=== PATIENT | male | born 1965 | race Caucasian/White ===

== ENCOUNTER 2017-05-14 15:22 | Inpatient (IN) | payer MEDICARE, OTHER ==
[~2017-05-14] VITALS: Ht 157.5 cm; Wt 64.2 kg
[~2017-05-14 15:22] MED LIST: ASPI325T70 PO; ONDA4TAB10 SL; ONDA4TAB12 PO; OXYC-323 PO
[2017-05-14] MEDS ORDERED: VANCOMYCIN 1GM IVPB FOR OMNI 250 ML IV ONE (16:45)
[2017-05-14] MEDS ORDERED: HYDROcodone/APAP 5/325MG 1 TAB TABLET PO ONE ×2 (16:45→17:30)
[2017-05-14] MEDS ORDERED: VANCOMYCIN 1.75 GM in IV NORMAL SALINE 500ML BAG 500 ML IV ONE (16:45)
[2017-05-14] MEDS ORDERED: DIPHTH,PERTUSS(ACELL),TET TOX 0.5 ML DISP.SYRIN. VAX IM ONE (17:00)
--- NOTE | 2017-05-14 17:09 | RAD ---
History: Swelling and redness of the left upper lateral thigh, evaluate for abscess. Comparison: None. Findings: Grayscale ultrasound imaging was performed of the left lateral thigh in area of interest. There is subcutaneous edema and soft tissue thickening. Within the edematous tissue, there is a focal hypoechoic area located about 1 cm deep to the skin surface. This measures 7 x 5 x 6 mm and may represent very small abscess. Impression: 1. Marked subcutaneous soft tissue thickening of the left lateral thigh, compatible with cellulitis. 2. There is a small focal hypoechoic area measuring 7 x 5 x 6 mm, may represent minimal abscess formation. Electronically signed by: Lucien Escudero MD (05/14/2017 5:06 PM) [facility]
[2017-05-14 17:12] LABS: BASO # 0.1 x10^3/uL (0.0-0.2); BASO % 1 % (0-3); EOS % 1 % (0-3); HEMATOCRIT 44.4 % (39.0-53.0); HEMOGLOBIN 15.4 g/dL (13.0-17.5); LYMPH # 2.5 x10^3/uL (1.0-4.8); LYMPH % 19 % (24-48); MEAN CORPUSCULAR HEMOGLOBIN 33 pg (25-35); MEAN CORPUSCULAR HGB CONC 35 g/dL (31-37); MEAN CORPUSCULAR VOLUME 95 fL (79-100); MONO % 10 % (0-9); NEUT % 71 % (31-73); PLATELET COUNT 151 x10^3/uL (140-400); RED BLOOD COUNT 4.67 x10^6/uL (4.30-5.70); RED CELL DISTRIBUTION WIDTH 12.7 % (11.5-14.5); WHITE BLOOD COUNT 13.6 x10^3/uL (4.0-11.0)
--- NOTE | 2017-05-14 17:24 | PDOC1 ---
History and Physical Date of Admission Date of Admission DATE: 05/14/17 TIME: 17:19 Identification/Chief Complaint Chief Complaint left leg abscess, wound./ Problems: Source Source: Caregiver, Chart review, Patient History of Present Illness History of Present Illness 51 y,.o male, smoker 1 ppday, non DM, no PCP, no home meds, just noticed today on day of admit that he has a painful golf sized bump on his left upper thigh near groin area, that is tender to mild touch, indurated around a central area of eschar and red, Denies fever, NO drainage, no identifiable cause for the lesion, Labs WBC 13, no BMP yet, ESR pending US done but pending , Started on some IV vanc and got TT at ER. Agreeable to admit for iV Abx Past Medical History Cardiovascular: No pertinent hx Pulmonary: Asthma GI: No pertinent hx Heme/Onc: No pertinent hx Psych: No pertinent hx Rheumatologic: No pertinent hx Infectious disease: No pertinent hx ENT: No pertinent hx Renal/: No pertinent hx Endocrine: No pertinent hx Dermatology: No pertinent hx Past Surgical History Past Surgical History: No pertinent history Family History Family History: No Significant, Heart Disease Social History Smoke: 1 pack per day ALCOHOL: none Drugs: None Current Medications Current Medications Current Medications Vancomycin HCl 250 ml @ 250 mls/hr 1X ONCE IV ; Start 05/14/17 at 16:45; Stop 05/14/17 at 17:44; Status UNV Acetaminophen/ Hydrocodone Bitart (Lortab 5/325) 2 tab 1X ONCE PO Last administered on 05/14/17 17:15; Start 05/14/17 at 16:45; Stop 05/14/17 at 16 :46; Status DC Diphtheria/ Tetanus/Acell Pertussis (Boostrix) 0.5 ml ONCE ONCE VAX IM Last administered on 05/14/17 17:17; Start 05/14/17 at 17:00; Stop 05/14/17 at 17 :01; Status DC Vancomycin HCl 1.75 gm/Sodium Chloride 500 ml @ 250 mls/hr 1X ONCE IV Last administered on 05/14/17 17:12; Start 05/14/17 at 16:45; Stop 05/14/17 at 18 :44 Vancomycin HCl (Vanco Per Pharmacy) 1 each PRN DAILY PRN MC SEE COMMENTS; Start 05/14/17 at 17:15 Acetaminophen/ Hydrocodone Bitart (Lortab 5/325) 2 tab 1X ONCE PO ; Start at 17:30; Stop 05/14/17 at 17:31 Active Scripts Active Ondansetron Odt (Ondansetron) 4 Mg Tab.rapdis 1 Tab PO PRN Q6-8HRS When necessary for nausea vomiting Percocet 5-325 Mg Tablet (Oxycodone/Acetaminophen) 1 Each Tablet 1 Tab PO QID Zofran Odt (Ondansetron) 4 Mg Tab.rapdis 1 Tab SL Q8HRS Reported Aspirin Buffered 325 Mg Tab (Aspirin/Calcium Carbonate/Mag) 325 Mg Tablet 325 Mg PO DAILY08 Allergies Allergies: Coded Allergies: Penicillins (Verified Allergy, Intermediate, hives, 07/10/14) ROS Review of System neg 14 pt reveiwed, all esle per hpI,. neg fever Physical Exam General: Alert, Oriented X3, Cooperative, No acute distress HEENT: Atraumatic, PERRLA, EOMI Lungs: Clear to auscultation, Normal air movement Heart: S1S2, RRR, no thrills, no rubs, no gallops Cardiovascular: S1, S2 Abdomen: Normal bowel sounds, Soft, No tenderness, No hepatosplenomegaly, No masses Male Genitals Exam: normal genitalia, normal prostate PELVIC: Nml ext genitalia Extremities: No clubbing, No cyanosis, No edema, Normal pulses, No tenderness/ swelling Skin: Other (golf sized lesion around upper left thigh ant to lateral side with induration around a central eschar, tender to touch) Neuro: Normal gait, Normal speech, Strength at 5/5 X4 ext, Normal tone, Sensation intact, Cranial nerves 3-12 NL, Reflexes 2+ Psych/Mental Status: Mental status NL, Mood NL Vitals Vitals Vital Signs Date Time Temp Pulse Resp B/P (MAP) Pulse Ox O2 Delivery O2 Flow Rate FiO2 05/14/17 17:15 18 96 Room Air 05/14/17 15:40 98.6 70 98.6 Labs Labs Laboratory Tests Test 05/14/17 17:00 White Blood Count 13.6 x10^3/uL (4.0-11.0) Red Blood Count 4.67 x10^6/uL (4.30-5.70) Hemoglobin 15.4 g/dL (13.0-17.5) Hematocrit 44.4 % (39.0-53.0) Mean Corpuscular Volume 95 fL (79-100) Mean Corpuscular Hemoglobin 33 pg (25-35) Mean Corpuscular Hemoglobin Concent 35 g/dL (31-37) Red Cell Distribution Width 12.7 % (11.5-14.5) Platelet Count 151 x10^3/uL (140-400) Neutrophils (%) (Auto) 71 % (31-73) Lymphocytes (%) (Auto) 19 % (24-48) Monocytes (%) (Auto) 10 % (0-9) Eosinophils (%) (Auto) 1 % (0-3) Basophils (%) (Auto) 1 % (0-3) Neutrophils # (Auto) 9.6 x10^3uL (1.8-7.7) Lymphocytes # (Auto) 2.5 x10^3/uL (1.0-4.8) Monocytes # (Auto) 1.3 x10^3/uL (0.0-1.1) Eosinophils # (Auto) 0.1 x10^3/uL (0.0-0.7) Basophils # (Auto) 0.1 x10^3/uL (0.0-0.2) Laboratory Tests Test 05/14/17 17:00 White Blood Count 13.6 x10^3/uL (4.0-11.0) Red Blood Count 4.67 x10^6/uL (4.30-5.70) Hemoglobin 15.4 g/dL (13.0-17.5) Hematocrit 44.4 % (39.0-53.0) Mean Corpuscular Volume 95 fL (79-100) Mean Corpuscular Hemoglobin 33 pg (25-35) Mean Corpuscular Hemoglobin Concent 35 g/dL (31-37) Red Cell Distribution Width 12.7 % (11.5-14.5) Platelet Count 151 x10^3/uL (140-400) Neutrophils (%) (Auto) 71 % (31-73) Lymphocytes (%) (Auto) 19 % (24-48) Monocytes (%) (Auto) 10 % (0-9) Eosinophils (%) (Auto) 1 % (0-3) Basophils (%) (Auto) 1 % (0-3) Neutrophils # (Auto) 9.6 x10^3uL (1.8-7.7) Lymphocytes # (Auto) 2.5 x10^3/uL (1.0-4.8) Monocytes # (Auto) 1.3 x10^3/uL (0.0-1.1) Eosinophils # (Auto) 0.1 x10^3/uL (0.0-0.7) Basophils # (Auto) 0.1 x10^3/uL (0.0-0.2) VTE Prophylaxis Ordered VTE Prophylaxis Devices: Yes VTE Pharmacological Prophylaxi: Yes Assessment/Plan Assessment/Plan 1. Cellulitis left upper thigh/groin area, r.o abscess 2. SMOker 3, NON DM PLAN: Admit TT IV abx Await US Fuirtehr recs pending ersults NSAIDs if no abscess pain control Seen at ER JORDAN LUNA MD May 14, 2017 17:24
[2017-05-14 17:29] LABS: CALCIUM 9.7 mg/dL (8.5-10.1); GFR 78.8; POTASSIUM 4.3 mmol/L (3.5-5.1)
[2017-05-14] MEDS ORDERED: IBUPROFEN 600 MG TABLET. PO PRN (17:30)
[2017-05-14] MEDS ORDERED: diphenhydrAMINE HCL 25 MG CAPSULE PO PRN (17:30)
--- NOTE | 2017-05-14 17:35 | PHYS DOC ---
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 He states it's very red with a dark center. He states that he noticed this area this morning. He states his last tetanus immunization was approximately 5 years ago. He denies any drainage or discharge coming from the site. He does state the pain radiates down into his lower leg. Review of Systems Review of Systems Constitutional: Denies fever or chills [] Eyes: Denies change in visual acuity, redness, or eye pain [] HENT: Denies nasal congestion or sore throat [] Respiratory: Denies cough or shortness of breath [] Cardiovascular: No additional information not addressed in HPI [] GI: Denies abdominal pain, nausea, vomiting, bloody stools or diarrhea [] : Denies dysuria or hematuria [] Musculoskeletal: Denies back pain or joint pain [] Integument: Denies rash or skin lesions. Complaint of abscess/cellulitis left upper lateral thigh Neurologic: Denies headache, focal weakness or sensory changes [] Endocrine: Denies polyuria or polydipsia [] Current Medications Current Medications Allergies Allergies Allergies Coded Allergies Type Severity Reaction Last Updated Verified Penicillins Allergy Intermediate hives 07/10/14 Yes Physical Exam Physical Exam Constitutional: Well developed, well nourished, no acute distress, non-toxic appearance. [] HENT: Normocephalic, atraumatic, bilateral external ears normal, oropharynx moist, no oral exudates, nose normal. [] Eyes: PERRLA, EOMI, conjunctiva normal, no discharge. [] Neck: Normal range of motion, no tenderness, supple, no stridor. [] Cardiovascular:Heart rate regular rhythm Lungs & Thorax: No respiratory distress noted Skin: Warm, dry, no erythema, no rash. Left lateral upper thigh appears to have an area of the size of a baseball that is red warm not indurated with a black center that is approximately size of a half a dollar. No drainage or discharge noted from the site tenderness was noted. Extremities: No tenderness, no cyanosis, no clubbing, ROM intact, no edema. [] Neurologic: Alert and oriented X 3, normal motor function, normal sensory function, no focal deficits noted. [] Psychologic: Affect normal, judgement normal, mood normal. [] Current Patient Data Vital Signs Vital Signs Date Time Temp Pulse Resp B/P (MAP) Pulse Ox O2 Delivery O2 Flow Rate FiO2 05/14/17 15:40 98.6 70 18 96 Room Air 98.6 Lab Values EKG EKG [] Radiology/Procedures Radiology/Procedures [] Course & Med Decision Making Course & Med Decision Making Pertinent Labs and Imaging studies reviewed. (See chart for details) Spoke with Dr Suh in regards to admission for this patient. Patient will be placed on Vancomycin. Dr Suh is aware labs are pending as well as ultrasound. Patient is aware of admission to the facility. [] Dragon Disclaimer Dragon Disclaimer This electronic medical record was generated, in whole or in part, using a voice recognition dictation system. Departure Departure Impression: Primary Impression: Cellulitis and abscess of left leg Disposition: ADMITTED INPATIENT Admitting Physician: Jackie Suh Referrals: LARRY FORBES MD (PCP) BUDDY SCHAEFFER APRN May 14, 2017 17:35
[2017-05-14 17:36] LABS: ALBUMIN/GLOBULIN RATIO 0.9 (1.0-1.7); C-REACTIVE PROTEIN 19.9 mg/L (0-3.3); TOTAL BILIRUBIN 0.6 mg/dL (0.2-1.0); TOTAL PROTEIN 8.4 g/dL (6.4-8.2)
[2017-05-14] MEDS: VANCOMYCIN PER PHARMACY MC PRN (18:03)
[2017-05-14 18:15] VITALS: BP 126/87
[2017-05-14 19:00] VITALS: BP 117/75
[2017-05-14] MEDS: HYDROcodone/APAP 5/325MG 1 TAB TABLET PO PRN (20:06)
[2017-05-14 23:00] VITALS: BP 112/74
[2017-05-15] MEDS: HYDROcodone/APAP 5/325MG 1 TAB TABLET PO PRN ×5 (02:43→21:54)
[2017-05-15 03:17] VITALS: BP 126/84
[2017-05-15] MEDS: VANCOMYCIN 1 GM in IV NORMAL SALINE 250ML 250 ML IV SCH ×2 (05:27→17:23)
[2017-05-15 05:36] LABS: CALCIUM 9.1 mg/dL (8.5-10.1); CREATININE 0.9 mg/dL (0.7-1.3); POTASSIUM 3.7 mmol/L (3.5-5.1)
[2017-05-15 05:55] LABS: BASO # 0.1 x10^3/uL (0.0-0.2); BASO % 1 % (0-3); EOS % 2 % (0-3); HEMATOCRIT 40.7 % (39.0-53.0); HEMOGLOBIN 14.4 g/dL (13.0-17.5); LYMPH # 2.3 x10^3/uL (1.0-4.8); LYMPH % 27 % (24-48); MEAN CORPUSCULAR HEMOGLOBIN 34 pg (25-35); MEAN CORPUSCULAR HGB CONC 35 g/dL (31-37); MEAN CORPUSCULAR VOLUME 95 fL (79-100); MONO % 11 % (0-9); NEUT % 59 % (31-73); PLATELET COUNT 126 x10^3/uL (140-400); RED CELL DISTRIBUTION WIDTH 12.5 % (11.5-14.5); WHITE BLOOD COUNT 8.3 x10^3/uL (4.0-11.0)
[2017-05-15 07:00] VITALS: BP 120/81
[2017-05-15] MEDS: NICOTINE 21MG PATCH. TD PRN ×2 (08:29→21:58)
[2017-05-15] MEDS ORDERED: PNEUMOCOCCAL VAX SCREEN BY RX. MC ONE (09:00)
[2017-05-15] MEDS ORDERED: PNEUMOC CONJ VACC 23-VALENT 0.5 ML VIAL. VAX IM ONE (09:00)
--- NOTE | 2017-05-15 09:59 | PDOC ---
PROGRESS NOTES Chief Complaint Chief Complaint 1. Cellulitis left upper thigh/groin area, r.o abscess 2. SMOker 3, NON DM History of Present Illness History of Present Illness I saw the pt < 12 hrs approx at ER US official read not yet avail, but wet read is abscess is there 7 cms in greatest diam LEsion still the same in my opinion PLAN: Consult Ortho NPO for now COnt IV Abx LAbs tmr Vitals Vitals Vital Signs Date Time Temp Pulse Resp B/P (MAP) Pulse Ox O2 Delivery O2 Flow Rate FiO2 05/15/17 08:31 Room Air 05/15/17 07:00 97.7 62 18 120/81 (94) 98 97.7 Physical Exam General: Alert, Oriented X3, Cooperative, No acute distress Lungs: Clear Abdomen: Normal bowel sounds, Soft, No tenderness, No hepatosplenomegaly, No masses Extremities: No clubbing, No cyanosis, No edema, Normal pulses, No tenderness/ swelling Skin: Other (golf sized lesion around upper left thigh ant to lateral side with induration around a central eschar, tender to touch) Labs LABS Laboratory Tests Test 05/14/17 17:00 05/15/17 04:01 White Blood Count 13.6 x10^3/uL (4.0-11.0) 8.3 x10^3/uL (4.0-11.0) Red Blood Count 4.67 x10^6/uL (4.30-5.70) 4.30 x10^6/uL (4.30-5.70) Hemoglobin 15.4 g/dL (13.0-17.5) 14.4 g/dL (13.0-17.5) Hematocrit 44.4 % (39.0-53.0) 40.7 % (39.0-53.0) Mean Corpuscular Volume 95 fL (79-100) 95 fL (79-100) Mean Corpuscular Hemoglobin 33 pg (25-35) 34 pg (25-35) Mean Corpuscular Hemoglobin Concent 35 g/dL (31-37) 35 g/dL (31-37) Red Cell Distribution Width 12.7 % (11.5-14.5) 12.5 % (11.5-14.5) Platelet Count 151 x10^3/uL (140-400) 126 x10^3/uL (140-400) Neutrophils (%) (Auto) 71 % (31-73) 59 % (31-73) Lymphocytes (%) (Auto) 19 % (24-48) 27 % (24-48) Monocytes (%) (Auto) 10 % (0-9) 11 % (0-9) Eosinophils (%) (Auto) 1 % (0-3) 2 % (0-3) Basophils (%) (Auto) 1 % (0-3) 1 % (0-3) Neutrophils # (Auto) 9.6 x10^3uL (1.8-7.7) 4.9 x10^3uL (1.8-7.7) Lymphocytes # (Auto) 2.5 x10^3/uL (1.0-4.8) 2.3 x10^3/uL (1.0-4.8) Monocytes # (Auto) 1.3 x10^3/uL (0.0-1.1) 0.9 x10^3/uL (0.0-1.1) Eosinophils # (Auto) 0.1 x10^3/uL (0.0-0.7) 0.2 x10^3/uL (0.0-0.7) Basophils # (Auto) 0.1 x10^3/uL (0.0-0.2) 0.1 x10^3/uL (0.0-0.2) Erythrocyte Sedimentation Rate 20 (0-15) Sodium Level 138 mmol/L (136-145) 138 mmol/L (136-145) Potassium Level 4.3 mmol/L (3.5-5.1) 3.7 mmol/L (3.5-5.1) Chloride Level 101 mmol/L (98-107) 103 mmol/L (98-107) Carbon Dioxide Level 25 mmol/L (21-32) 27 mmol/L (21-32) Anion Gap 12 (6-14) 8 (6-14) Blood Urea Nitrogen 16 mg/dL (8-26) 16 mg/dL (8-26) Creatinine 1.0 mg/dL (0.7-1.3) 0.9 mg/dL (0.7-1.3) Estimated GFR (Cockcroft-Gault) 78.8 89.0 BUN/Creatinine Ratio 16 (6-20) Glucose Level 89 mg/dL (70-99) 85 mg/dL (70-99) Calcium Level 9.7 mg/dL (8.5-10.1) 9.1 mg/dL (8.5-10.1) Total Bilirubin 0.6 mg/dL (0.2-1.0) Aspartate Amino Transf (AST/SGOT) 35 U/L (15-37) Alanine Aminotransferase (ALT/SGPT) 42 U/L (16-63) Alkaline Phosphatase 78 U/L (46-116) C-Reactive Protein, Quantitative 19.9 mg/L (0-3.3) Total Protein 8.4 g/dL (6.4-8.2) Albumin 4.0 g/dL (3.4-5.0) Albumin/Globulin Ratio 0.9 (1.0-1.7) Review of Systems Review of Systems left hip pain, all else is neg 14 pt reviewed Assessment and Plan Assessmemt and Plan Problems Medical Problems: (1) Cellulitis and abscess of left leg Status: Acute Problems: Comment Review of Relevant I have reviewed the following items aleksandr (where applicable) has been applied. Labs Laboratory Tests Test 05/14/17 17:00 05/15/17 04:01 White Blood Count 13.6 x10^3/uL (4.0-11.0) 8.3 x10^3/uL (4.0-11.0) Red Blood Count 4.67 x10^6/uL (4.30-5.70) 4.30 x10^6/uL (4.30-5.70) Hemoglobin 15.4 g/dL (13.0-17.5) 14.4 g/dL (13.0-17.5) Hematocrit 44.4 % (39.0-53.0) 40.7 % (39.0-53.0) Mean Corpuscular Volume 95 fL (79-100) 95 fL (79-100) Mean Corpuscular Hemoglobin 33 pg (25-35) 34 pg (25-35) Mean Corpuscular Hemoglobin Concent 35 g/dL (31-37) 35 g/dL (31-37) Red Cell Distribution Width 12.7 % (11.5-14.5) 12.5 % (11.5-14.5) Platelet Count 151 x10^3/uL (140-400) 126 x10^3/uL (140-400) Neutrophils (%) (Auto) 71 % (31-73) 59 % (31-73) Lymphocytes (%) (Auto) 19 % (24-48) 27 % (24-48) Monocytes (%) (Auto) 10 % (0-9) 11 % (0-9) Eosinophils (%) (Auto) 1 % (0-3) 2 % (0-3) Basophils (%) (Auto) 1 % (0-3) 1 % (0-3) Neutrophils # (Auto) 9.6 x10^3uL (1.8-7.7) 4.9 x10^3uL (1.8-7.7) Lymphocytes # (Auto) 2.5 x10^3/uL (1.0-4.8) 2.3 x10^3/uL (1.0-4.8) Monocytes # (Auto) 1.3 x10^3/uL (0.0-1.1) 0.9 x10^3/uL (0.0-1.1) Eosinophils # (Auto) 0.1 x10^3/uL (0.0-0.7) 0.2 x10^3/uL (0.0-0.7) Basophils # (Auto) 0.1 x10^3/uL (0.0-0.2) 0.1 x10^3/uL (0.0-0.2) Erythrocyte Sedimentation Rate 20 (0-15) Sodium Level 138 mmol/L (136-145) 138 mmol/L (136-145) Potassium Level 4.3 mmol/L (3.5-5.1) 3.7 mmol/L (3.5-5.1) Chloride Level 101 mmol/L (98-107) 103 mmol/L (98-107) Carbon Dioxide Level 25 mmol/L (21-32) 27 mmol/L (21-32) Anion Gap 12 (6-14) 8 (6-14) Blood Urea Nitrogen 16 mg/dL (8-26) 16 mg/dL (8-26) Creatinine 1.0 mg/dL (0.7-1.3) 0.9 mg/dL (0.7-1.3) Estimated GFR (Cockcroft-Gault) 78.8 89.0 BUN/Creatinine Ratio 16 (6-20) Glucose Level 89 mg/dL (70-99) 85 mg/dL (70-99) Calcium Level 9.7 mg/dL (8.5-10.1) 9.1 mg/dL (8.5-10.1) Total Bilirubin 0.6 mg/dL (0.2-1.0) Aspartate Amino Transf (AST/SGOT) 35 U/L (15-37) Alanine Aminotransferase (ALT/SGPT) 42 U/L (16-63) Alkaline Phosphatase 78 U/L (46-116) C-Reactive Protein, Quantitative 19.9 mg/L (0-3.3) Total Protein 8.4 g/dL (6.4-8.2) Albumin 4.0 g/dL (3.4-5.0) Albumin/Globulin Ratio 0.9 (1.0-1.7) Laboratory Tests Test 05/14/17 17:00 05/15/17 04:01 White Blood Count 13.6 x10^3/uL (4.0-11.0) 8.3 x10^3/uL (4.0-11.0) Red Blood Count 4.67 x10^6/uL (4.30-5.70) 4.30 x10^6/uL (4.30-5.70) Hemoglobin 15.4 g/dL (13.0-17.5) 14.4 g/dL (13.0-17.5) Hematocrit 44.4 % (39.0-53.0) 40.7 % (39.0-53.0) Mean Corpuscular Volume 95 fL (79-100) 95 fL (79-100) Mean Corpuscular Hemoglobin 33 pg (25-35) 34 pg (25-35) Mean Corpuscular Hemoglobin Concent 35 g/dL (31-37) 35 g/dL (31-37) Red Cell Distribution Width 12.7 % (11.5-14.5) 12.5 % (11.5-14.5) Platelet Count 151 x10^3/uL (140-400) 126 x10^3/uL (140-400) Neutrophils (%) (Auto) 71 % (31-73) 59 % (31-73) Lymphocytes (%) (Auto) 19 % (24-48) 27 % (24-48) Monocytes (%) (Auto) 10 % (0-9) 11 % (0-9) Eosinophils (%) (Auto) 1 % (0-3) 2 % (0-3) Basophils (%) (Auto) 1 % (0-3) 1 % (0-3) Neutrophils # (Auto) 9.6 x10^3uL (1.8-7.7) 4.9 x10^3uL (1.8-7.7) Lymphocytes # (Auto) 2.5 x10^3/uL (1.0-4.8) 2.3 x10^3/uL (1.0-4.8) Monocytes # (Auto) 1.3 x10^3/uL (0.0-1.1) 0.9 x10^3/uL (0.0-1.1) Eosinophils # (Auto) 0.1 x10^3/uL (0.0-0.7) 0.2 x10^3/uL (0.0-0.7) Basophils # (Auto) 0.1 x10^3/uL (0.0-0.2) 0.1 x10^3/uL (0.0-0.2) Erythrocyte Sedimentation Rate 20 (0-15) Sodium Level 138 mmol/L (136-145) 138 mmol/L (136-145) Potassium Level 4.3 mmol/L (3.5-5.1) 3.7 mmol/L (3.5-5.1) Chloride Level 101 mmol/L (98-107) 103 mmol/L (98-107) Carbon Dioxide Level 25 mmol/L (21-32) 27 mmol/L (21-32) Anion Gap 12 (6-14) 8 (6-14) Blood Urea Nitrogen 16 mg/dL (8-26) 16 mg/dL (8-26) Creatinine 1.0 mg/dL (0.7-1.3) 0.9 mg/dL (0.7-1.3) Estimated GFR (Cockcroft-Gault) 78.8 89.0 BUN/Creatinine Ratio 16 (6-20) Glucose Level 89 mg/dL (70-99) 85 mg/dL (70-99) Calcium Level 9.7 mg/dL (8.5-10.1) 9.1 mg/dL (8.5-10.1) Total Bilirubin 0.6 mg/dL (0.2-1.0) Aspartate Amino Transf (AST/SGOT) 35 U/L (15-37) Alanine Aminotransferase (ALT/SGPT) 42 U/L (16-63) Alkaline Phosphatase 78 U/L (46-116) C-Reactive Protein, Quantitative 19.9 mg/L (0-3.3) Total Protein 8.4 g/dL (6.4-8.2) Albumin 4.0 g/dL (3.4-5.0) Albumin/Globulin Ratio 0.9 (1.0-1.7) Medications Current Medications Vancomycin HCl 250 ml @ 250 mls/hr 1X ONCE IV ; Start 05/14/17 at 16:45; Stop 05/14/17 at 17:44; Status UNV Acetaminophen/ Hydrocodone Bitart (Lortab 5/325) 2 tab 1X ONCE PO Last administered on 05/14/17 17:15; Start 05/14/17 at 16:45; Stop 05/14/17 at 16 :46; Status DC Diphtheria/ Tetanus/Acell Pertussis (Boostrix) 0.5 ml ONCE ONCE VAX IM Last administered on 05/14/17 17:17; Start 05/14/17 at 17:00; Stop 05/14/17 at 17 :01; Status DC Vancomycin HCl 1.75 gm/Sodium Chloride 500 ml @ 250 mls/hr 1X ONCE IV Last administered on 05/14/17 17:12; Start 05/14/17 at 16:45; Stop 05/14/17 at 18 :44; Status DC Vancomycin HCl (Vanco Per Pharmacy) 1 each PRN DAILY PRN MC SEE COMMENTS Last administered on 05/14/17 18:03; Start 05/14/17 at 17:15 Acetaminophen/ Hydrocodone Bitart (Lortab 5/325) 2 tab 1X ONCE PO ; Start at 17:30; Stop 05/14/17 at 17:31; Status DC Acetaminophen/ Hydrocodone Bitart (Lortab 5/325) 1 tab PRN Q4HRS PRN PO PAIN Last administered on 05/15/17 08:31; Start 05/14/17 at 17:30 Ibuprofen (Motrin) 600 mg PRN Q6HRS PRN PO INFLAMMATION; Start 05/14/17 at 17: 30 Albuterol Sulfate (Ventolin Neb Soln) 2.5 mg PRN Q4HRS PRN NEB SHORTNESS OF BREATH; Start 05/14/17 at 17:30 Nicotine (Nicoderm Cq 21mg) 1 patch PRN DAILY PRN TD SMOKING CESSATION Last administered on 05/15/17 08:29; Start 05/14/17 at 17:30 Diphenhydramine HCl (Benadryl) 25 mg PRN QHS PRN PO INSOMNIA; Start 05/14/17 at 17:30 Vancomycin HCl 1 gm/Sodium Chloride 250 ml @ 250 mls/hr Q12H IV Last administered on 05/15/17 05:27; Start 05/15/17 at 05:00 Vancomycin HCl 1 each 1X ONCE MC ; Start 05/16/17 at 04:30; Stop 05/16/17 at 04:31 Pneumococcal Polyvalent Vaccine (Do NOT chart on this placeholder) 0.5 each 1X ONCE MC ; Start 05/15/17 at 09:00; Stop 05/15/17 at 09:01; Status UNV Pneumococcal Polyvalent Vaccine (Pneumovax 23) 0.5 ml ONCE ONCE VAX IM ; Start 05/15/17 at 09:00; Stop 05/15/17 at 09:01; Status DC Active Scripts Active Ondansetron Odt (Ondansetron) 4 Mg Tab.rapdis 1 Tab PO PRN Q6-8HRS When necessary for nausea vomiting Percocet 5-325 Mg Tablet (Oxycodone/Acetaminophen) 1 Each Tablet 1 Tab PO QID Vitals/I & O Vital Sign - Last 24 Hours 05/14/17 05/14/17 05/14/17 05/14/17 15:40 16:47 17:15 17:17 Temp 98.6 98.6 Pulse 70 74 76 Resp 18 18 18 18 B/P (MAP) 142/90 (107) 148/95 (112) Pulse Ox 96 96 96 98 O2 Delivery Room Air Room Air Room Air Room Air 10/17/05/14/17 05/14/17 05/14/17 17:47 18:15 18:15 19:00 Temp 98.9 97.5 98.9 97.5 Pulse 76 83 77 Resp 48 18 18 20 B/P (MAP) 150/90 (110) 126/87 (100) 117/75 (89) Pulse Ox 97 95 99 O2 Delivery Room Air Room Air Room Air Room Air 05/14/17 05/14/17 05/14/17 05/14/17 20:00 20:06 21:06 23:00 Temp 98.2 98.2 Pulse 62 Resp 16 20 B/P (MAP) 112/74 (87) Pulse Ox 99 95 O2 Delivery Room Air Room Air Room Air Room Air 05/15/17 05/15/17 05/15/17 05/15/17 02:43 03:17 07:00 08:31 Temp 97.9 97.7 97.9 97.7 Pulse 63 62 Resp 20 18 B/P (MAP) 126/84 (98) 120/81 (94) Pulse Ox 96 98 O2 Delivery Room Air Room Air Room Air Room Air JORDAN LUNA MD May 15, 2017 09:59
[2017-05-15 11:00] VITALS: BP 130/77
--- NOTE | 2017-05-15 13:18 | PDOC2 ---
CONSULT Date of Consult Date of Consult DATE: 05/15/17 TIME: 13:06 Reason for Consult Reason for Consult: left thigh abscess Referring Physician Referring Physician: Dr. Bloom Identification/Chief Complaint Chief Complaint left thigh redness and swelling Problems: Source Source: Patient History of Present Illness Reason for Visit: Mr. Hutton is a 51 year old male patient admitted with a left thigh lesion, which he states he noticed just one day prior to admission. The lesion is red and painful to the touch and with movement. He lives at home with his brother and [id number] and works in [email or web address]. He smokes 1ppd for 23 years, but states he is ready to quit and is going to a class. His primary care provider is Dr. Wilder. He has a history of asthma and states he has had increased shortness of breath recently. He takes hydrocodone for back pain. WBC 13.6 on admission, ESR 20, CRP 19.9. Currently on IV Vancomycin. Past Medical History Cardiovascular: No pertinent hx Pulmonary: Asthma GI: GERD Heme/Onc: No pertinent hx Psych: No pertinent hx Musculoskeletal: low back pain Rheumatologic: No pertinent hx Infectious disease: No pertinent hx ENT: No pertinent hx Renal/: No pertinent hx Endocrine: No pertinent hx Dermatology: No pertinent hx Past Surgical History Past Surgical History: No pertinent history Family History Family History: Heart Disease Social History 1 pack per day ALCOHOL: none Drugs: None Lives: with Family (brother and [id number]) Current Problem List Problem List Problems Medical Problems: (1) Cellulitis and abscess of left leg Status: Acute Current Medications Current Medications Current Medications Vancomycin HCl 250 ml @ 250 mls/hr 1X ONCE IV ; Start 05/14/17 at 16:45; Stop 05/14/17 at 17:44; Status UNV Acetaminophen/ Hydrocodone Bitart (Lortab 5/325) 2 tab 1X ONCE PO Last administered on 05/14/17t 17:15; Start 05/14/17 at 16:45; Stop 05/14/17 at 16 :46; Status DC Diphtheria/ Tetanus/Acell Pertussis (Boostrix) 0.5 ml ONCE ONCE VAX IM Last administered on 05/14/17t 17:17; Start 05/14/17 at 17:00; Stop 05/14/17 at 17 :01; Status DC Vancomycin HCl 1.75 gm/Sodium Chloride 500 ml @ 250 mls/hr 1X ONCE IV Last administered on 05/14/17 17:12; Start 05/14/17 at 16:45; Stop 05/14/17 at 18 :44; Status DC Vancomycin HCl (Vanco Per Pharmacy) 1 each PRN DAILY PRN MC SEE COMMENTS Last administered on 05/14/17 18:03; Start 05/14/17 at 17:15 Acetaminophen/ Hydrocodone Bitart (Lortab 5/325) 2 tab 1X ONCE PO ; Start at 17:30; Stop 05/14/17 at 17:31; Status DC Acetaminophen/ Hydrocodone Bitart (Lortab 5/325) 1 tab PRN Q4HRS PRN PO PAIN Last administered on 05/15/17 08:31; Start 05/14/17 at 17:30 Ibuprofen (Motrin) 600 mg PRN Q6HRS PRN PO INFLAMMATION; Start 05/14/17 at 17: 30 Albuterol Sulfate (Ventolin Neb Soln) 2.5 mg PRN Q4HRS PRN NEB SHORTNESS OF BREATH; Start 05/14/17 at 17:30 Nicotine (Nicoderm Cq 21mg) 1 patch PRN DAILY PRN TD SMOKING CESSATION Last administered on 05/15/17 08:29; Start 05/14/17 at 17:30 Diphenhydramine HCl (Benadryl) 25 mg PRN QHS PRN PO INSOMNIA; Start 05/14/17 at 17:30 Vancomycin HCl 1 gm/Sodium Chloride 250 ml @ 250 mls/hr Q12H IV Last administered on 05/15/17 05:27; Start 05/15/17 at 05:00 Vancomycin HCl 1 each 1X ONCE MC ; Start 05/16/17 at 04:30; Stop 05/16/17 at 04:31 Pneumococcal Polyvalent Vaccine (Do NOT chart on this placeholder) 0.5 each 1X ONCE MC ; Start 05/15/17 at 09:00; Stop 05/15/17 at 09:01; Status UNV Pneumococcal Polyvalent Vaccine (Pneumovax 23) 0.5 ml ONCE ONCE VAX IM ; Start 05/15/17 at 09:00; Stop 05/15/17 at 09:01; Status DC Active Scripts Active Ondansetron Odt (Ondansetron) 4 Mg Tab.rapdis 1 Tab PO PRN Q6-8HRS When necessary for nausea vomiting Percocet 5-325 Mg Tablet (Oxycodone/Acetaminophen) 1 Each Tablet 1 Tab PO QID Allergies Allergies: Coded Allergies: Penicillins (Verified Allergy, Intermediate, hives, 07/10/14) ROS Respiratory: YES: Shortness of breath Skin: Yes Other (painful lesion to left thigh) Physical Exam General: Alert, Oriented X3, Cooperative, No acute distress HEENT: Atraumatic, EOMI Lungs: Normal air movement Heart: Regular rate Abdomen: Soft Extremities: No clubbing, No cyanosis, No edema, Normal pulses Skin: No rashes, Other (There is a golf ball size area of erythema to the left lateral thigh with a center eschar. There is induration and mild fluctuation felt with palpation. Significant tenderness to palpation. No drainage noted. ) Neuro: Normal speech, Sensation intact Psych/Mental Status: Mental status NL, Mood NL Vitals VITALS Vital Signs Date Time Temp Pulse Resp B/P (MAP) Pulse Ox O2 Delivery O2 Flow Rate FiO2 05/15/17 11:00 97.9 57 18 130/77 (94) 95 Room Air 97.9 Labs Labs Laboratory Tests Test 05/14/17 17:00 05/15/17 04:01 White Blood Count 13.6 x10^3/uL (4.0-11.0) 8.3 x10^3/uL (4.0-11.0) Red Blood Count 4.67 x10^6/uL (4.30-5.70) 4.30 x10^6/uL (4.30-5.70) Hemoglobin 15.4 g/dL (13.0-17.5) 14.4 g/dL (13.0-17.5) Hematocrit 44.4 % (39.0-53.0) 40.7 % (39.0-53.0) Mean Corpuscular Volume 95 fL (79-100) 95 fL (79-100) Mean Corpuscular Hemoglobin 33 pg (25-35) 34 pg (25-35) Mean Corpuscular Hemoglobin Concent 35 g/dL (31-37) 35 g/dL (31-37) Red Cell Distribution Width 12.7 % (11.5-14.5) 12.5 % (11.5-14.5) Platelet Count 151 x10^3/uL (140-400) 126 x10^3/uL (140-400) Neutrophils (%) (Auto) 71 % (31-73) 59 % (31-73) Lymphocytes (%) (Auto) 19 % (24-48) 27 % (24-48) Monocytes (%) (Auto) 10 % (0-9) 11 % (0-9) Eosinophils (%) (Auto) 1 % (0-3) 2 % (0-3) Basophils (%) (Auto) 1 % (0-3) 1 % (0-3) Neutrophils # (Auto) 9.6 x10^3uL (1.8-7.7) 4.9 x10^3uL (1.8-7.7) Lymphocytes # (Auto) 2.5 x10^3/uL (1.0-4.8) 2.3 x10^3/uL (1.0-4.8) Monocytes # (Auto) 1.3 x10^3/uL (0.0-1.1) 0.9 x10^3/uL (0.0-1.1) Eosinophils # (Auto) 0.1 x10^3/uL (0.0-0.7) 0.2 x10^3/uL (0.0-0.7) Basophils # (Auto) 0.1 x10^3/uL (0.0-0.2) 0.1 x10^3/uL (0.0-0.2) Erythrocyte Sedimentation Rate 20 (0-15) Sodium Level 138 mmol/L (136-145) 138 mmol/L (136-145) Potassium Level 4.3 mmol/L (3.5-5.1) 3.7 mmol/L (3.5-5.1) Chloride Level 101 mmol/L (98-107) 103 mmol/L (98-107) Carbon Dioxide Level 25 mmol/L (21-32) 27 mmol/L (21-32) Anion Gap 12 (6-14) 8 (6-14) Blood Urea Nitrogen 16 mg/dL (8-26) 16 mg/dL (8-26) Creatinine 1.0 mg/dL (0.7-1.3) 0.9 mg/dL (0.7-1.3) Estimated GFR (Cockcroft-Gault) 78.8 89.0 BUN/Creatinine Ratio 16 (6-20) Glucose Level 89 mg/dL (70-99) 85 mg/dL (70-99) Calcium Level 9.7 mg/dL (8.5-10.1) 9.1 mg/dL (8.5-10.1) Total Bilirubin 0.6 mg/dL (0.2-1.0) Aspartate Amino Transf (AST/SGOT) 35 U/L (15-37) Alanine Aminotransferase (ALT/SGPT) 42 U/L (16-63) Alkaline Phosphatase 78 U/L (46-116) C-Reactive Protein, Quantitative 19.9 mg/L (0-3.3) Total Protein 8.4 g/dL (6.4-8.2) Albumin 4.0 g/dL (3.4-5.0) Albumin/Globulin Ratio 0.9 (1.0-1.7) Laboratory Tests Test 05/14/17 17:00 05/15/17 04:01 White Blood Count 13.6 x10^3/uL (4.0-11.0) 8.3 x10^3/uL (4.0-11.0) Red Blood Count 4.67 x10^6/uL (4.30-5.70) 4.30 x10^6/uL (4.30-5.70) Hemoglobin 15.4 g/dL (13.0-17.5) 14.4 g/dL (13.0-17.5) Hematocrit 44.4 % (39.0-53.0) 40.7 % (39.0-53.0) Mean Corpuscular Volume 95 fL (79-100) 95 fL (79-100) Mean Corpuscular Hemoglobin 33 pg (25-35) 34 pg (25-35) Mean Corpuscular Hemoglobin Concent 35 g/dL (31-37) 35 g/dL (31-37) Red Cell Distribution Width 12.7 % (11.5-14.5) 12.5 % (11.5-14.5) Platelet Count 151 x10^3/uL (140-400) 126 x10^3/uL (140-400) Neutrophils (%) (Auto) 71 % (31-73) 59 % (31-73) Lymphocytes (%) (Auto) 19 % (24-48) 27 % (24-48) Monocytes (%) (Auto) 10 % (0-9) 11 % (0-9) Eosinophils (%) (Auto) 1 % (0-3) 2 % (0-3) Basophils (%) (Auto) 1 % (0-3) 1 % (0-3) Neutrophils # (Auto) 9.6 x10^3uL (1.8-7.7) 4.9 x10^3uL (1.8-7.7) Lymphocytes # (Auto) 2.5 x10^3/uL (1.0-4.8) 2.3 x10^3/uL (1.0-4.8) Monocytes # (Auto) 1.3 x10^3/uL (0.0-1.1) 0.9 x10^3/uL (0.0-1.1) Eosinophils # (Auto) 0.1 x10^3/uL (0.0-0.7) 0.2 x10^3/uL (0.0-0.7) Basophils # (Auto) 0.1 x10^3/uL (0.0-0.2) 0.1 x10^3/uL (0.0-0.2) Erythrocyte Sedimentation Rate 20 (0-15) Sodium Level 138 mmol/L (136-145) 138 mmol/L (136-145) Potassium Level 4.3 mmol/L (3.5-5.1) 3.7 mmol/L (3.5-5.1) Chloride Level 101 mmol/L (98-107) 103 mmol/L (98-107) Carbon Dioxide Level 25 mmol/L (21-32) 27 mmol/L (21-32) Anion Gap 12 (6-14) 8 (6-14) Blood Urea Nitrogen 16 mg/dL (8-26) 16 mg/dL (8-26) Creatinine 1.0 mg/dL (0.7-1.3) 0.9 mg/dL (0.7-1.3) Estimated GFR (Cockcroft-Gault) 78.8 89.0 BUN/Creatinine Ratio 16 (6-20) Glucose Level 89 mg/dL (70-99) 85 mg/dL (70-99) Calcium Level 9.7 mg/dL (8.5-10.1) 9.1 mg/dL (8.5-10.1) Total Bilirubin 0.6 mg/dL (0.2-1.0) Aspartate Amino Transf (AST/SGOT) 35 U/L (15-37) Alanine Aminotransferase (ALT/SGPT) 42 U/L (16-63) Alkaline Phosphatase 78 U/L (46-116) C-Reactive Protein, Quantitative 19.9 mg/L (0-3.3) Total Protein 8.4 g/dL (6.4-8.2) Albumin 4.0 g/dL (3.4-5.0) Albumin/Globulin Ratio 0.9 (1.0-1.7) Images Images Left thigh ultrasound reviewed and shows marked subcutaneous soft tissue thickening and a small focal hypoechoic area measuring 7 x 5 x 6 mm may represent abscess formation Assessment/Plan Assessment/Plan Left lateral thigh abscess. Dr. Webster recommended incision and drainage of the abscess in the OR tomorrow. The risks of surgery were discussed with the patient and he agrees to proceed. We will plan for I&D tomorrow morning at 7:30am. He may eat today and then NPO after midnight. MYLES HALL May 15, 2017 13:18
[2017-05-15] MEDS: VANCOMYCIN PER PHARMACY MC PRN (14:17)
[2017-05-15 15:00] VITALS: BP 123/82
[2017-05-15] MEDS: ALBUTEROL SULFATE 2.5 MG/3 ML NEBU. NEB PRN ×2 (17:33→20:54)
[2017-05-15 19:00] VITALS: BP 134/64
[2017-05-15 23:00] VITALS: BP 116/70
[2017-05-16] VITALS (12 sets, daily range): BP systolic 100–128; BP diastolic 53–77
[2017-05-16] MEDS: HYDROcodone/APAP 5/325MG 1 TAB TABLET PO PRN (03:40)
[2017-05-16 04:59] LABS: BASO % 0 % (0-3); EOS % 3 % (0-3); HEMATOCRIT 41.4 % (39.0-53.0); HEMOGLOBIN 14.6 g/dL (13.0-17.5); LYMPH # 1.7 x10^3/uL (1.0-4.8); LYMPH % 21 % (24-48); MEAN CORPUSCULAR HEMOGLOBIN 34 pg (25-35); MEAN CORPUSCULAR HGB CONC 35 g/dL (31-37); MEAN CORPUSCULAR VOLUME 95 fL (79-100); MONO % 9 % (0-9); NEUT % 67 % (31-73); PLATELET COUNT 123 x10^3/uL (140-400); RED BLOOD COUNT 4.35 x10^6/uL (4.30-5.70); RED CELL DISTRIBUTION WIDTH 12.6 % (11.5-14.5)
[2017-05-16 05:21] LABS: CALCIUM 8.6 mg/dL (8.5-10.1); CREATININE 0.9 mg/dL (0.7-1.3); POTASSIUM 3.8 mmol/L (3.5-5.1)
[2017-05-16] MEDS: VANCOMYCIN PER PHARMACY MC PRN ×2 (05:48→15:46)
[2017-05-16] MEDS: VANCOMYCIN 1 GM in IV NORMAL SALINE 250ML 250 ML IV SCH ×2 (06:25→16:50)
[2017-05-16] MEDS ORDERED: MORPHINE SULFATE 2 MG/ML DISP.SYRIN. IV PRN ×2 (07:00→08:45)
[2017-05-16] MEDS ORDERED: PROCHLORPERAZINE 10 MG/2 ML VIAL. IV PRN (07:00)
[2017-05-16] MEDS ORDERED: LIDOCAINE 1% PF 2 ML VIAL. ID PRN (07:00)
[2017-05-16] MEDS ORDERED: ONDANSETRON PF 4 MG/2 ML VIAL. IV PRN ×2 (07:00→08:45)
[2017-05-16] MEDS ORDERED: fentaNYL PF VIAL 100 MCG/2 ML VIAL IV PRN ×3 (07:00→08:45)
[2017-05-16] MEDS ORDERED: IV RINGERS,LACTATED 1000ML 1,000 ML IV SCH (07:00)
[2017-05-16] MEDS ORDERED: HYDROmorphone 2 MG/ML VIAL IV PRN (07:00)
[2017-05-16] MEDS ORDERED: LIDOCAINE 2% PF Vial for OR 5 ML VIAL. ONE (07:13)
[2017-05-16] MEDS ORDERED: PROPOFOL 20 ML IV ONE (07:13)
[2017-05-16] MEDS ORDERED: DEXAMETHASONE SOD PHOS 20 MG/5 ML VIAL. ONE (07:13)
[2017-05-16] MEDS ORDERED: ONDANSETRON PF 4 MG/2 ML VIAL. ONE (07:13)
[2017-05-16] MEDS ORDERED: MIDAZOLAM HCL/PF 2 MG/2 ML VIAL. ONE (07:14)
[2017-05-16] MEDS ORDERED: fentaNYL PF VIAL 100 MCG/2 ML VIAL ONE ×2 (07:14→09:03)
[2017-05-16] MEDS: fentaNYL PF VIAL 100 MCG/2 ML VIAL IV PRN ×2 (07:47→08:10)
[2017-05-16] MEDS ORDERED: SEVOFLURANE 16 TO 30 MINUTES. IH ONE (08:32)
[2017-05-16] MEDS ORDERED: DEXTROSE 50% 25 GM / 50ML DISP.SYRIN. IV PRN (08:45)
[2017-05-16] MEDS ORDERED: oxyCODONE IR 5 MG TABLET PO PRN (08:45)
[2017-05-16] MEDS ORDERED: MORPHINE SULFATE 4 MG/ML DISP.SYRIN. IV PRN (08:45)
[2017-05-16] MEDS ORDERED: POLYETHYLENE GLYCOL 3350 17 GM PACKET. PO PRN (08:45)
[2017-05-16] MEDS ORDERED: HYDROcodone/APAP 7.5/325MG 1 TAB TABLET PO PRN (08:45)
--- NOTE | 2017-05-16 09:01 | PDOC4 ---
Operative Note Operative Note Date of Procedure: May 16, 2017 Pre-Op Diagnosis: Abscess left thigh Post-Op Diagnosis: Abscess left thigh Procedure: Incision and drainage left thigh abscess Surgeon: Parish Webster MD Opal Miner: Chica Lucio PA-C Anesthesia: General EBL: 10 mL Specimens Obtained: Cultures for aerobic and anaerobic Complications: none Drains: Iodoform packing Indications for Procedure: The patient is a 51-year-old man who developed a left thigh abscess without known injury. He has a red tender swollen area on the left thigh, and ultrasound shows a deep abscess. I recommended incision and drainage. The patient and I discussed the risks, benefits and alternatives of surgery. All of his questions about surgery were answered and he desired to proceed. Written consent was obtained. Procedure in Detail: The patient was identified in the preoperative holding area. The correct left lower extremity was marked by me. The patient was taken to the operating room where general anesthesia was used. The patient was positioned supine on the operating table. The patient is on scheduled antibiotics, and no additional antibodies were given. A timeout procedure was performed. The surgical area was prepared in sterile fashion. Sterile drapes were applied. An incision was made into the abscess using a 15 blade scalpel. Purulent drainage was noted. Cultures were taken. Glenn was used for sharp excisional debridement of nonviable tissue including skin and subcutaneous tissue. The deep cavity of the abscess was probed and debrided with a curet. The abscess extended from the skin to the subcutaneous tissues, but does not seem to extend to the fascia kamari. The volume of the abscess was approximately 5mL, in the deep subcutaneous tissues. Copious saline irrigation was used. The abscess cavity was packed open using quarter-inch iodoform packing. Sterile dressings were applied. Needle and sponge counts were correct. PARISH WEBSTER MD May 16, 2017 09:01
[2017-05-16] MEDS: ALBUTEROL SULFATE 2.5 MG/3 ML NEBU. NEB PRN ×2 (09:11→19:07)
[2017-05-16] MEDS: SENNOSIDES/DOCUSATE 8.6/50MG TABLET. PO SCH (10:07)
[2017-05-16] MEDS: HYDROcodone/APAP 7.5/325MG 1 TAB TABLET PO PRN ×3 (11:50→20:36)
[2017-05-16] MEDS: NICOTINE 21MG PATCH. TD PRN (12:58)
--- NOTE | 2017-05-16 13:13 | PDOC ---
PROGRESS NOTES Chief Complaint Chief Complaint 1. Cellulitis left upper thigh/groin area, small 5cc abscess s/p i and Drainage on 05/16 2. SMOker 3, NON DM plan: fu with dr. Webster on vanco for now pain control local wound packing for drainage fu wound cx dvt ppx History of Present Illness History of Present Illness ROS: no fever, chills, sob or chest pain s/p i and drainage today with dr. Webster feels pain is better Vitals Vitals Vital Signs Date Time Temp Pulse Resp B/P (MAP) Pulse Ox O2 Delivery O2 Flow Rate FiO2 05/16/17 12:55 Room Air 05/16/17 11:50 98 05/16/17 09:13 97.4 64 16 118/66 97.4 05/16/17 08:43 10 Physical Exam General: Alert, Oriented X3, Cooperative, No acute distress Heart: Regular rate, Normal S1, Normal S2 Lungs: Clear Abdomen: Soft Extremities: No clubbing, No cyanosis, No edema, Normal pulses Skin: No rashes, Other (There is a golf ball size area of erythema to the left lateral thigh with a center eschar. There is induration and mild fluctuation felt with palpation. Significant tenderness to palpation. No drainage noted. ) Labs LABS Laboratory Tests Test 05/16/17 04:30 White Blood Count 8.0 x10^3/uL (4.0-11.0) Red Blood Count 4.35 x10^6/uL (4.30-5.70) Hemoglobin 14.6 g/dL (13.0-17.5) Hematocrit 41.4 % (39.0-53.0) Mean Corpuscular Volume 95 fL (79-100) Mean Corpuscular Hemoglobin 34 pg (25-35) Mean Corpuscular Hemoglobin Concent 35 g/dL (31-37) Red Cell Distribution Width 12.6 % (11.5-14.5) Platelet Count 123 x10^3/uL (140-400) Neutrophils (%) (Auto) 67 % (31-73) Lymphocytes (%) (Auto) 21 % (24-48) Monocytes (%) (Auto) 9 % (0-9) Eosinophils (%) (Auto) 3 % (0-3) Basophils (%) (Auto) 0 % (0-3) Neutrophils # (Auto) 5.4 x10^3uL (1.8-7.7) Lymphocytes # (Auto) 1.7 x10^3/uL (1.0-4.8) Monocytes # (Auto) 0.7 x10^3/uL (0.0-1.1) Eosinophils # (Auto) 0.3 x10^3/uL (0.0-0.7) Basophils # (Auto) 0.0 x10^3/uL (0.0-0.2) Sodium Level 141 mmol/L (136-145) Potassium Level 3.8 mmol/L (3.5-5.1) Chloride Level 106 mmol/L (98-107) Carbon Dioxide Level 24 mmol/L (21-32) Anion Gap 11 (6-14) Blood Urea Nitrogen 12 mg/dL (8-26) Creatinine 0.9 mg/dL (0.7-1.3) Estimated GFR (Cockcroft-Gault) 89.0 Glucose Level 95 mg/dL (70-99) Calcium Level 8.6 mg/dL (8.5-10.1) Vancomycin Level Trough 11.2 mcg/mL (10.0-20.0) Vancomycin Last Dose Date 05/15/17 Vancomycin Last Dose Time 1700 Assessment and Plan Assessmemt and Plan Problems Medical Problems: (1) Cellulitis and abscess of left leg Status: Acute Problems: Comment Review of Relevant I have reviewed the following items aleksandr (where applicable) has been applied. Labs Laboratory Tests Test 05/14/17 17:00 05/15/17 04:01 05/16/17 04:30 White Blood Count 13.6 x10^3/uL (4.0-11.0) 8.3 x10^3/uL (4.0-11.0) 8.0 x10^3/uL (4.0-11.0) Red Blood Count 4.67 x10^6/uL (4.30-5.70) 4.30 x10^6/uL (4.30-5.70) 4.35 x10^6/uL (4.30-5.70) Hemoglobin 15.4 g/dL (13.0-17.5) 14.4 g/dL (13.0-17.5) 14.6 g/dL (13.0-17.5) Hematocrit 44.4 % (39.0-53.0) 40.7 % (39.0-53.0) 41.4 % (39.0-53.0) Mean Corpuscular Volume 95 fL (79-100) 95 fL (79-100) 95 fL (79-100) Mean Corpuscular Hemoglobin 33 pg (25-35) 34 pg (25-35) 34 pg (25-35) Mean Corpuscular Hemoglobin Concent 35 g/dL (31-37) 35 g/dL (31-37) 35 g/dL (31-37) Red Cell Distribution Width 12.7 % (11.5-14.5) 12.5 % (11.5-14.5) 12.6 % (11.5-14.5) Platelet Count 151 x10^3/uL (140-400) 126 x10^3/uL (140-400) 123 x10^3/uL (140-400) Neutrophils (%) (Auto) 71 % (31-73) 59 % (31-73) 67 % (31-73) Lymphocytes (%) (Auto) 19 % (24-48) 27 % (24-48) 21 % (24-48) Monocytes (%) (Auto) 10 % (0-9) 11 % (0-9) 9 % (0-9) Eosinophils (%) (Auto) 1 % (0-3) 2 % (0-3) 3 % (0-3) Basophils (%) (Auto) 1 % (0-3) 1 % (0-3) 0 % (0-3) Neutrophils # (Auto) 9.6 x10^3uL (1.8-7.7) 4.9 x10^3uL (1.8-7.7) 5.4 x10^3uL (1.8-7.7) Lymphocytes # (Auto) 2.5 x10^3/uL (1.0-4.8) 2.3 x10^3/uL (1.0-4.8) 1.7 x10^3/uL (1.0-4.8) Monocytes # (Auto) 1.3 x10^3/uL (0.0-1.1) 0.9 x10^3/uL (0.0-1.1) 0.7 x10^3/uL (0.0-1.1) Eosinophils # (Auto) 0.1 x10^3/uL (0.0-0.7) 0.2 x10^3/uL (0.0-0.7) 0.3 x10^3/uL (0.0-0.7) Basophils # (Auto) 0.1 x10^3/uL (0.0-0.2) 0.1 x10^3/uL (0.0-0.2) 0.0 x10^3/uL (0.0-0.2) Erythrocyte Sedimentation Rate 20 (0-15) Sodium Level 138 mmol/L (136-145) 138 mmol/L (136-145) 141 mmol/L (136-145) Potassium Level 4.3 mmol/L (3.5-5.1) 3.7 mmol/L (3.5-5.1) 3.8 mmol/L (3.5-5.1) Chloride Level 101 mmol/L (98-107) 103 mmol/L (98-107) 106 mmol/L (98-107) Carbon Dioxide Level 25 mmol/L (21-32) 27 mmol/L (21-32) 24 mmol/L (21-32) Anion Gap 12 (6-14) 8 (6-14) 11 (6-14) Blood Urea Nitrogen 16 mg/dL (8-26) 16 mg/dL (8-26) 12 mg/dL (8-26) Creatinine 1.0 mg/dL (0.7-1.3) 0.9 mg/dL (0.7-1.3) 0.9 mg/dL (0.7-1.3) Estimated GFR (Cockcroft-Gault) 78.8 89.0 89.0 BUN/Creatinine Ratio 16 (6-20) Glucose Level 89 mg/dL (70-99) 85 mg/dL (70-99) 95 mg/dL (70-99) Calcium Level 9.7 mg/dL (8.5-10.1) 9.1 mg/dL (8.5-10.1) 8.6 mg/dL (8.5-10.1) Total Bilirubin 0.6 mg/dL (0.2-1.0) Aspartate Amino Transf (AST/SGOT) 35 U/L (15-37) Alanine Aminotransferase (ALT/SGPT) 42 U/L (16-63) Alkaline Phosphatase 78 U/L (46-116) C-Reactive Protein, Quantitative 19.9 mg/L (0-3.3) Total Protein 8.4 g/dL (6.4-8.2) Albumin 4.0 g/dL (3.4-5.0) Albumin/Globulin Ratio 0.9 (1.0-1.7) Vancomycin Level Trough 11.2 mcg/mL (10.0-20.0) Vancomycin Last Dose Date 05/15/17 Vancomycin Last Dose Time 1700 Laboratory Tests Test 05/16/17 04:30 White Blood Count 8.0 x10^3/uL (4.0-11.0) Red Blood Count 4.35 x10^6/uL (4.30-5.70) Hemoglobin 14.6 g/dL (13.0-17.5) Hematocrit 41.4 % (39.0-53.0) Mean Corpuscular Volume 95 fL (79-100) Mean Corpuscular Hemoglobin 34 pg (25-35) Mean Corpuscular Hemoglobin Concent 35 g/dL (31-37) Red Cell Distribution Width 12.6 % (11.5-14.5) Platelet Count 123 x10^3/uL (140-400) Neutrophils (%) (Auto) 67 % (31-73) Lymphocytes (%) (Auto) 21 % (24-48) Monocytes (%) (Auto) 9 % (0-9) Eosinophils (%) (Auto) 3 % (0-3) Basophils (%) (Auto) 0 % (0-3) Neutrophils # (Auto) 5.4 x10^3uL (1.8-7.7) Lymphocytes # (Auto) 1.7 x10^3/uL (1.0-4.8) Monocytes # (Auto) 0.7 x10^3/uL (0.0-1.1) Eosinophils # (Auto) 0.3 x10^3/uL (0.0-0.7) Basophils # (Auto) 0.0 x10^3/uL (0.0-0.2) Sodium Level 141 mmol/L (136-145) Potassium Level 3.8 mmol/L (3.5-5.1) Chloride Level 106 mmol/L (98-107) Carbon Dioxide Level 24 mmol/L (21-32) Anion Gap 11 (6-14) Blood Urea Nitrogen 12 mg/dL (8-26) Creatinine 0.9 mg/dL (0.7-1.3) Estimated GFR (Cockcroft-Gault) 89.0 Glucose Level 95 mg/dL (70-99) Calcium Level 8.6 mg/dL (8.5-10.1) Vancomycin Level Trough 11.2 mcg/mL (10.0-20.0) Vancomycin Last Dose Date 05/15/17 Vancomycin Last Dose Time 1700 Microbiology 05/14/17 Blood Culture - Preliminary, Resulted NO GROWTH AFTER 1 DAY 05/16/17 Gram Stain - Final, Complete Medications Current Medications Vancomycin HCl 250 ml @ 250 mls/hr 1X ONCE IV ; Start 05/14/17 at 16:45; Stop 05/14/17 at 17:44; Status UNV Acetaminophen/ Hydrocodone Bitart (Lortab 5/325) 2 tab 1X ONCE PO Last administered on 05/14/17 17:15; Start 05/14/17 at 16:45; Stop 05/14/17 at 16 :46; Status DC Diphtheria/ Tetanus/Acell Pertussis (Boostrix) 0.5 ml ONCE ONCE VAX IM Last administered on 05/14/17 17:17; Start 05/14/17 at 17:00; Stop 05/14/17 at 17 :01; Status DC Vancomycin HCl 1.75 gm/Sodium Chloride 500 ml @ 250 mls/hr 1X ONCE IV Last administered on 05/14/17 17:12; Start 05/14/17 at 16:45; Stop 05/14/17 at 18 :44; Status DC Vancomycin HCl (Vanco Per Pharmacy) 1 each PRN DAILY PRN MC SEE COMMENTS Last administered on 05/16/17 05:48; Start 05/14/17 at 17:15 Acetaminophen/ Hydrocodone Bitart (Lortab 5/325) 2 tab 1X ONCE PO ; Start at 17:30; Stop 05/14/17 at 17:31; Status DC Acetaminophen/ Hydrocodone Bitart (Lortab 5/325) 1 tab PRN Q4HRS PRN PO PAIN Last administered on 05/16/17 03:40; Start 05/14/17 at 17:30 Ibuprofen (Motrin) 600 mg PRN Q6HRS PRN PO INFLAMMATION; Start 05/14/17 at 17: 30 Albuterol Sulfate (Ventolin Neb Soln) 2.5 mg PRN Q4HRS PRN NEB SHORTNESS OF BREATH Last administered on 05/15/17 20:54; Start 05/14/17 at 17:30; Stop at 09:07; Status DC Nicotine (Nicoderm Cq 21mg) 1 patch PRN DAILY PRN TD SMOKING CESSATION Last administered on 05/16/17 12:58; Start 05/14/17 at 17:30 Diphenhydramine HCl (Benadryl) 25 mg PRN QHS PRN PO INSOMNIA; Start 05/14/17 at 17:30 Vancomycin HCl 1 gm/Sodium Chloride 250 ml @ 250 mls/hr Q12H IV Last administered on 05/16/17 06:25; Start 05/15/17 at 05:00 Vancomycin HCl 1 each 1X ONCE MC Last administered on 05/16/17 04:30; Start 05/16/17 at 04:30; Stop 05/16/17 at 04:31; Status DC Pneumococcal Polyvalent Vaccine (Do NOT chart on this placeholder) 0.5 each 1X ONCE MC ; Start 05/15/17 at 09:00; Stop 05/15/17 at 09:01; Status UNV Pneumococcal Polyvalent Vaccine (Pneumovax 23) 0.5 ml ONCE ONCE VAX IM Last administered on 05/16/17 10:13; Start 05/15/17 at 09:00; Stop 05/15/17 at 09 :01; Status DC Ondansetron HCl (Zofran) 4 mg PRN Q6HRS PRN IV NAUSEA/VOMITING; Start at 07:00; Stop 05/16/17 at 19:00 Fentanyl Citrate (Fentanyl 2ml Vial) 25 mcg PRN Q5MIN PRN IV MILD PAIN; Start 05/16/17 at 07:00; Stop 05/16/17 at 19:00 Fentanyl Citrate (Fentanyl 2ml Vial) 50 mcg PRN Q5MIN PRN IV MODERATE PAIN Last administered on 05/16/17t 09:01; Start 05/16/17 at 07:00; Stop 05/16/17 at 19:00 Morphine Sulfate 1 mg PRN Q10MIN PRN IV SEVERE PAIN; Start 05/16/17 at 07:00; Stop 05/16/17 at 19:00 Ringer's Solution 1,000 ml @ 30 mls/hr Q24H IV Last administered on t 07:30; Start 05/16/17 at 07:00; Stop 05/16/17 at 18:59 Lidocaine HCl (Xylocaine-Mpf 1% Vial) 2 ml PRN 1X PRN ID IV START; Start 05/16 at 07:00; Stop 05/16/17 at 19:00 Hydromorphone HCl (Dilaudid) 0.5 mg PRN Q10MIN PRN IV SEV PAIN, Second choice; Start 05/16/17 at 07:00; Stop 05/16/17 at 19:00 Prochlorperazine Edisylate (Compazine) 5 mg PACU PRN PRN IV NAUSEA, MRX1; Start 05/16/17 at 07:00; Stop 05/16/17 at 19:00 Propofol 20 ml @ As Directed STK-MED ONCE IV ; Start 05/16/17 at 07:13; Stop 05/16/17 at 07:14; Status DC Dexamethasone Sodium Phosphate (Decadron) 20 mg STK-MED ONCE .ROUTE ; Start at 07:13; Stop 05/16/17 at 07:14; Status DC Lidocaine HCl (Lidocaine Pf 2% Vial) 5 ml STK-MED ONCE .ROUTE ; Start 05/16/17 at 07:13; Stop 05/16/17 at 07:14; Status DC Ondansetron HCl (Zofran) 4 mg STK-MED ONCE .ROUTE ; Start 05/16/17 at 07:13; Stop 05/16/17 at 07:14; Status DC Midazolam HCl (Versed) 2 mg STK-MED ONCE .ROUTE ; Start 05/16/17 at 07:14; Stop 05/16/17 at 07:15; Status DC Fentanyl Citrate (Fentanyl 2ml Vial) 100 mcg STK-MED ONCE .ROUTE ; Start at 07:14; Stop 05/16/17 at 07:15; Status DC Fentanyl Citrate (Fentanyl 2ml Vial) 50 mcg PACU PRN PRN IV pain Last administered on 05/16/17 08:10; Start 05/16/17 at 07:45 Sevoflurane (Ultane) 15 ml STK-MED ONCE IH ; Start 05/16/17 at 08:32; Stop at 08:33; Status DC Oxycodone HCl (Roxicodone) 5 mg PRN Q3HRS PRN PO PAIN; Start 05/16/17 at 08:45 Morphine Sulfate 2 mg PRN Q1HR PRN IV PAIN; Start 05/16/17 at 08:45 Fentanyl Citrate (Fentanyl 2ml Vial) 25 mcg PRN Q1HR PRN IV PAIN; Start at 08:45 Senna/Docusate Sodium (Senna Plus) 1 tab DAILY PO Last administered on 10:07; Start 05/16/17 at 09:00 Polyethylene Glycol (miraLAX PACKET) 17 gm PRN DAILY PRN PO CONSTIPATION; Start 05/16/17 at 08:45 Ondansetron HCl (Zofran) 4 mg PRN Q4HRS PRN IV NAUSEA/VOMITING; Start at 08:45 Magnesium Hydroxide (Milk Of Magnesia) 2,400 mg 1X PRN PRN PO CONSTIPATION; Start 05/17/17 at 06:00; Stop 05/18/17 at 05:59 Bisacodyl (Dulcolax Supp) 10 mg 1X PRN PRN LA CONSTIPATION; Start 05/17/17 at 16:00; Stop 05/18/17 at 15:59 Acetaminophen/ Hydrocodone Bitart (Lortab 7.5/325) 1 tab PRN Q4HRS PRN PO PAIN ; Start 05/16/17 at 08:45 Morphine Sulfate 4 mg PRN Q2HR PRN IV PAIN; Start 05/16/17 at 08:45 Acetaminophen/ Hydrocodone Bitart (Lortab 7.5/325) 2 tab PRN Q4HRS PRN PO PAIN Last administered on 05/16/17 11:50; Start 05/16/17 at 08:45 Dextrose (Dextrose 50%-Water Syringe) 12.5 gm PRN Q15MIN PRN IV SEE COMMENTS; Start 05/16/17 at 08:45 Zolpidem Tartrate (Ambien) 5 mg PRN QHS PRN PO INSOMNIA; Start 05/16/17 at 08: 45 Fentanyl Citrate (Fentanyl 2ml Vial) 100 mcg STK-MED ONCE .ROUTE ; Start at 09:03; Stop 05/16/17 at 09:04; Status DC Albuterol Sulfate (Ventolin Neb Soln) 2.5 mg PRN Q4HRS PRN NEB SHORTNESS OF BREATH Last administered on 05/16/17t 09:11; Start 05/16/17 at 09:15 Active Scripts Active Ondansetron Odt (Ondansetron) 4 Mg Tab.rapdis 1 Tab PO PRN Q6-8HRS When necessary for nausea vomiting Percocet 5-325 Mg Tablet (Oxycodone/Acetaminophen) 1 Each Tablet 1 Tab PO QID Vitals/I & O Vital Sign - Last 24 Hours 05/15/17 05/15/17 05/15/17 05/15/17 13:22 15:00 17:22 17:38 Temp 97.9 97.9 Pulse 71 Resp 20 B/P (MAP) 123/82 (96) Pulse Ox 95 96 O2 Delivery Room Air Room Air Room Air Room Air 05/15/17 05/15/17 05/15/17 05/15/17 19:00 20:00 20:54 21:54 Temp 97.9 97.9 Pulse 67 Resp 19 B/P (MAP) 134/64 (87) Pulse Ox 96 96 O2 Delivery Room Air Room Air Room Air Room Air 05/15/17 05/15/17 05/16/17 05/16/17 22:54 23:00 03:00 03:40 Temp 97.5 97.9 97.5 97.9 Pulse 72 67 Resp 19 18 B/P (MAP) 116/70 (85) 115/70 (85) Pulse Ox 95 96 O2 Delivery Room Air Room Air Room Air Room Air 05/16/17 05/16/17 05/16/17 05/16/17 07:05 07:47 08:10 08:43 Temp 97.4 97.8 97.4 97.8 Pulse 67 59 Resp 15 15 15 16 B/P (MAP) 178/87 92/50 Pulse Ox 100 100 100 100 O2 Delivery Room Air Room Air Room Air Simple Mask O2 Flow Rate 10 05/16/17 05/16/17 05/16/17 05/16/17 08:58 09:00 09:01 09:13 Temp 97.4 97.4 Pulse 58 64 Resp 17 16 16 B/P (MAP) 100/59 118/66 Pulse Ox 100 100 100 O2 Delivery Room Air Room Air Room Air Room Air 05/16/17 05/16/17 05/16/17 05/16/17 09:27 09:50 10:06 11:50 Pulse Ox 98 O2 Delivery Room Air Room Air Room Air Room Air 05/16/17 12:55 O2 Delivery Room Air TRACY SARGENT MD May 16, 2017 13:13
[2017-05-16] MEDS ORDERED: ENOXAPARIN 40 MG/0.4 ML SYRINGE. SQ SCH (13:15)
[2017-05-16] MEDS: ZOLPIDEM 5 MG TABLET. PO PRN (20:36)
[2017-05-17 03:00] VITALS: BP 116/64
[2017-05-17] MEDS: VANCOMYCIN 1 GM in IV NORMAL SALINE 250ML 250 ML IV SCH ×2 (04:58→17:52)
[2017-05-17] MEDS ORDERED: MAGNESIUM HYDROXIDE 2,400 MG/30 ML ORAL.SUSP. PO PRN (06:00)
[2017-05-17 06:29] LABS: BASO % 0 % (0-3); EOS % 0 % (0-3); HEMATOCRIT 39.2 % (39.0-53.0); HEMOGLOBIN 13.5 g/dL (13.0-17.5); LYMPH # 1.6 x10^3/uL (1.0-4.8); LYMPH % 11 % (24-48); MEAN CORPUSCULAR HEMOGLOBIN 33 pg (25-35); MEAN CORPUSCULAR HGB CONC 35 g/dL (31-37); MEAN CORPUSCULAR VOLUME 96 fL (79-100); MONO % 8 % (0-9); NEUT % 80 % (31-73); PLATELET COUNT 133 x10^3/uL (140-400); RED BLOOD COUNT 4.09 x10^6/uL (4.30-5.70); RED CELL DISTRIBUTION WIDTH 12.5 % (11.5-14.5)
[2017-05-17 06:46] LABS: CALCIUM 8.6 mg/dL (8.5-10.1); CREATININE 0.8 mg/dL (0.7-1.3); GFR 101.9; POTASSIUM 4.1 mmol/L (3.5-5.1)
[2017-05-17 07:00] VITALS: BP 143/64
[2017-05-17] MEDS: HYDROcodone/APAP 7.5/325MG 1 TAB TABLET PO PRN (07:25)
[2017-05-17] MEDS: ALBUTEROL SULFATE 2.5 MG/3 ML NEBU. NEB PRN (08:22)
[2017-05-17] MEDS: SENNOSIDES/DOCUSATE 8.6/50MG TABLET. PO SCH (08:51)
[2017-05-17] MEDS: ENOXAPARIN 40 MG/0.4 ML SYRINGE. SQ SCH (08:52)
[2017-05-17] MEDS ORDERED: ACETAMINOPHEN 325 MG TABLET. PO PRN (10:15)
[2017-05-17 11:00] VITALS: BP 133/79
--- NOTE | 2017-05-17 12:19 | PDOC ---
PROGRESS NOTES Chief Complaint Chief Complaint 1. Cellulitis left upper thigh/groin area, small 5cc abscess s/p i and Drainage on 05/16 2. SMOker 3, NON DM sepsis plan: fu with dr. Webster on vanco for now, grain stain gram + cocci, sensitivity pending pain control local wound packing for drainage fu final wound cx dvt ppx PTOT History of Present Illness History of Present Illness ROS: no chills, sob or chest pain T 100.0 s/p i and [id number] Webster feels pain is better WBC higher 14 05/17 Vitals Vitals Vital Signs Date Time Temp Pulse Resp B/P (MAP) Pulse Ox O2 Delivery O2 Flow Rate FiO2 05/17/17 11:00 97.5 66 20 133/79 (97) 98 Room Air 97.5 05/16/17 21:36 10.0 Physical Exam General: Alert, Oriented X3, Cooperative, No acute distress Heart: Regular rate, Normal S1, Normal S2 Lungs: Clear Abdomen: Soft Extremities: No clubbing, No cyanosis, No edema, Normal pulses Skin: No rashes, Other (There is a golf ball size area of erythema to the left lateral thigh with a center eschar. There is induration and mild fluctuation felt with palpation. Significant tenderness to palpation. No drainage noted. ) Labs LABS Laboratory Tests Test 05/17/17 05:18 White Blood Count 14.0 x10^3/uL (4.0-11.0) Red Blood Count 4.09 x10^6/uL (4.30-5.70) Hemoglobin 13.5 g/dL (13.0-17.5) Hematocrit 39.2 % (39.0-53.0) Mean Corpuscular Volume 96 fL (79-100) Mean Corpuscular Hemoglobin 33 pg (25-35) Mean Corpuscular Hemoglobin Concent 35 g/dL (31-37) Red Cell Distribution Width 12.5 % (11.5-14.5) Platelet Count 133 x10^3/uL (140-400) Neutrophils (%) (Auto) 80 % (31-73) Lymphocytes (%) (Auto) 11 % (24-48) Monocytes (%) (Auto) 8 % (0-9) Eosinophils (%) (Auto) 0 % (0-3) Basophils (%) (Auto) 0 % (0-3) Neutrophils # (Auto) 11.2 x10^3uL (1.8-7.7) Lymphocytes # (Auto) 1.6 x10^3/uL (1.0-4.8) Monocytes # (Auto) 1.2 x10^3/uL (0.0-1.1) Eosinophils # (Auto) 0.0 x10^3/uL (0.0-0.7) Basophils # (Auto) 0.0 x10^3/uL (0.0-0.2) Sodium Level 140 mmol/L (136-145) Potassium Level 4.1 mmol/L (3.5-5.1) Chloride Level 106 mmol/L (98-107) Carbon Dioxide Level 25 mmol/L (21-32) Anion Gap 9 (6-14) Blood Urea Nitrogen 13 mg/dL (8-26) Creatinine 0.8 mg/dL (0.7-1.3) Estimated GFR (Cockcroft-Gault) 101.9 Glucose Level 105 mg/dL (70-99) Calcium Level 8.6 mg/dL (8.5-10.1) Assessment and Plan Assessmemt and Plan Problems Medical Problems: (1) Cellulitis and abscess of left leg Status: Acute Problems: Comment Review of Relevant I have reviewed the following items aleksandr (where applicable) has been applied. Labs Laboratory Tests Test 05/16/17 04:30 05/17/17 05:18 White Blood Count 8.0 x10^3/uL (4.0-11.0) 14.0 x10^3/uL (4.0-11.0) Red Blood Count 4.35 x10^6/uL (4.30-5.70) 4.09 x10^6/uL (4.30-5.70) Hemoglobin 14.6 g/dL (13.0-17.5) 13.5 g/dL (13.0-17.5) Hematocrit 41.4 % (39.0-53.0) 39.2 % (39.0-53.0) Mean Corpuscular Volume 95 fL (79-100) 96 fL (79-100) Mean Corpuscular Hemoglobin 34 pg (25-35) 33 pg (25-35) Mean Corpuscular Hemoglobin Concent 35 g/dL (31-37) 35 g/dL (31-37) Red Cell Distribution Width 12.6 % (11.5-14.5) 12.5 % (11.5-14.5) Platelet Count 123 x10^3/uL (140-400) 133 x10^3/uL (140-400) Neutrophils (%) (Auto) 67 % (31-73) 80 % (31-73) Lymphocytes (%) (Auto) 21 % (24-48) 11 % (24-48) Monocytes (%) (Auto) 9 % (0-9) 8 % (0-9) Eosinophils (%) (Auto) 3 % (0-3) 0 % (0-3) Basophils (%) (Auto) 0 % (0-3) 0 % (0-3) Neutrophils # (Auto) 5.4 x10^3uL (1.8-7.7) 11.2 x10^3uL (1.8-7.7) Lymphocytes # (Auto) 1.7 x10^3/uL (1.0-4.8) 1.6 x10^3/uL (1.0-4.8) Monocytes # (Auto) 0.7 x10^3/uL (0.0-1.1) 1.2 x10^3/uL (0.0-1.1) Eosinophils # (Auto) 0.3 x10^3/uL (0.0-0.7) 0.0 x10^3/uL (0.0-0.7) Basophils # (Auto) 0.0 x10^3/uL (0.0-0.2) 0.0 x10^3/uL (0.0-0.2) Sodium Level 141 mmol/L (136-145) 140 mmol/L (136-145) Potassium Level 3.8 mmol/L (3.5-5.1) 4.1 mmol/L (3.5-5.1) Chloride Level 106 mmol/L (98-107) 106 mmol/L (98-107) Carbon Dioxide Level 24 mmol/L (21-32) 25 mmol/L (21-32) Anion Gap 11 (6-14) 9 (6-14) Blood Urea Nitrogen 12 mg/dL (8-26) 13 mg/dL (8-26) Creatinine 0.9 mg/dL (0.7-1.3) 0.8 mg/dL (0.7-1.3) Estimated GFR (Cockcroft-Gault) 89.0 101.9 Glucose Level 95 mg/dL (70-99) 105 mg/dL (70-99) Calcium Level 8.6 mg/dL (8.5-10.1) 8.6 mg/dL (8.5-10.1) Vancomycin Level Trough 11.2 mcg/mL (10.0-20.0) Vancomycin Last Dose Date 05/15/17 Vancomycin Last Dose Time 1700 Laboratory Tests Test 05/17/17 05:18 White Blood Count 14.0 x10^3/uL (4.0-11.0) Red Blood Count 4.09 x10^6/uL (4.30-5.70) Hemoglobin 13.5 g/dL (13.0-17.5) Hematocrit 39.2 % (39.0-53.0) Mean Corpuscular Volume 96 fL (79-100) Mean Corpuscular Hemoglobin 33 pg (25-35) Mean Corpuscular Hemoglobin Concent 35 g/dL (31-37) Red Cell Distribution Width 12.5 % (11.5-14.5) Platelet Count 133 x10^3/uL (140-400) Neutrophils (%) (Auto) 80 % (31-73) Lymphocytes (%) (Auto) 11 % (24-48) Monocytes (%) (Auto) 8 % (0-9) Eosinophils (%) (Auto) 0 % (0-3) Basophils (%) (Auto) 0 % (0-3) Neutrophils # (Auto) 11.2 x10^3uL (1.8-7.7) Lymphocytes # (Auto) 1.6 x10^3/uL (1.0-4.8) Monocytes # (Auto) 1.2 x10^3/uL (0.0-1.1) Eosinophils # (Auto) 0.0 x10^3/uL (0.0-0.7) Basophils # (Auto) 0.0 x10^3/uL (0.0-0.2) Sodium Level 140 mmol/L (136-145) Potassium Level 4.1 mmol/L (3.5-5.1) Chloride Level 106 mmol/L (98-107) Carbon Dioxide Level 25 mmol/L (21-32) Anion Gap 9 (6-14) Blood Urea Nitrogen 13 mg/dL (8-26) Creatinine 0.8 mg/dL (0.7-1.3) Estimated GFR (Cockcroft-Gault) 101.9 Glucose Level 105 mg/dL (70-99) Calcium Level 8.6 mg/dL (8.5-10.1) Microbiology 05/14/17 Blood Culture - Preliminary, Resulted NO GROWTH AFTER 2 DAYS 05/16/17 Gram Stain - Final, Complete Medications Current Medications Vancomycin HCl 250 ml @ 250 mls/hr 1X ONCE IV ; Start 05/14/17 at 16:45; Stop 05/14/17 at 17:44; Status UNV Acetaminophen/ Hydrocodone Bitart (Lortab 5/325) 2 tab 1X ONCE PO Last administered on 05/14/17 17:15; Start 05/14/17 at 16:45; Stop 05/14/17 at 16 :46; Status DC Diphtheria/ Tetanus/Acell Pertussis (Boostrix) 0.5 ml ONCE ONCE VAX IM Last administered on 05/14/17 17:17; Start 05/14/17 at 17:00; Stop 05/14/17 at 17 :01; Status DC Vancomycin HCl 1.75 gm/Sodium Chloride 500 ml @ 250 mls/hr 1X ONCE IV Last administered on 05/14/17 17:12; Start 05/14/17 at 16:45; Stop 05/14/17 at 18 :44; Status DC Vancomycin HCl (Vanco Per Pharmacy) 1 each PRN DAILY PRN MC SEE COMMENTS Last administered on 05/16/17 15:46; Start 05/14/17 at 17:15 Acetaminophen/ Hydrocodone Bitart (Lortab 5/325) 2 tab 1X ONCE PO ; Start at 17:30; Stop 05/14/17 at 17:31; Status DC Acetaminophen/ Hydrocodone Bitart (Lortab 5/325) 1 tab PRN Q4HRS PRN PO PAIN Last administered on 05/16/17 03:40; Start 05/14/17 at 17:30 Ibuprofen (Motrin) 600 mg PRN Q6HRS PRN PO INFLAMMATION; Start 05/14/17 at 17: 30; Stop 05/16/17 at 13:12; Status DC Albuterol Sulfate (Ventolin Neb Soln) 2.5 mg PRN Q4HRS PRN NEB SHORTNESS OF BREATH Last administered on 05/15/17 20:54; Start 05/14/17 at 17:30; Stop at 09:07; Status DC Nicotine (Nicoderm Cq 21mg) 1 patch PRN DAILY PRN TD SMOKING CESSATION Last administered on 05/16/17 12:58; Start 05/14/17 at 17:30 Diphenhydramine HCl (Benadryl) 25 mg PRN QHS PRN PO INSOMNIA; Start 05/14/17 at 17:30 Vancomycin HCl 1 gm/Sodium Chloride 250 ml @ 250 mls/hr Q12H IV Last administered on 05/17/17 04:58; Start 05/15/17 at 05:00 Vancomycin HCl 1 each 1X ONCE MC Last administered on 05/16/17 04:30; Start 05/16/17 at 04:30; Stop 05/16/17 at 04:31; Status DC Pneumococcal Polyvalent Vaccine (Do NOT chart on this placeholder) 0.5 each 1X ONCE MC ; Start 05/15/17 at 09:00; Stop 05/15/17 at 09:01; Status UNV Pneumococcal Polyvalent Vaccine (Pneumovax 23) 0.5 ml ONCE ONCE VAX IM Last administered on 05/16/17 10:13; Start 05/15/17 at 09:00; Stop 05/15/17 at 09 :01; Status DC Ondansetron HCl (Zofran) 4 mg PRN Q6HRS PRN IV NAUSEA/VOMITING; Start at 07:00; Stop 05/16/17 at 19:00; Status DC Fentanyl Citrate (Fentanyl 2ml Vial) 25 mcg PRN Q5MIN PRN IV MILD PAIN; Start 05/16/17 at 07:00; Stop 05/16/17 at 19:00; Status DC Fentanyl Citrate (Fentanyl 2ml Vial) 50 mcg PRN Q5MIN PRN IV MODERATE PAIN Last administered on 05/16/17 09:01; Start 05/16/17 at 07:00; Stop 05/16/17 at 19:00; Status DC Morphine Sulfate 1 mg PRN Q10MIN PRN IV SEVERE PAIN; Start 05/16/17 at 07:00; Stop 05/16/17 at 19:00; Status DC Ringer's Solution 1,000 ml @ 30 mls/hr Q24H IV Last administered on t 07:30; Start 05/16/17 at 07:00; Stop 05/16/17 at 18:59; Status DC Lidocaine HCl (Xylocaine-Mpf 1% Vial) 2 ml PRN 1X PRN ID IV START; Start 05/16 at 07:00; Stop 05/16/17 at 19:00; Status DC Hydromorphone HCl (Dilaudid) 0.5 mg PRN Q10MIN PRN IV SEV PAIN, Second choice; Start 05/16/17 at 07:00; Stop 05/16/17 at 19:00; Status DC Prochlorperazine Edisylate (Compazine) 5 mg PACU PRN PRN IV NAUSEA, MRX1; Start 05/16/17 at 07:00; Stop 05/16/17 at 19:00; Status DC Propofol 20 ml @ As Directed STK-MED ONCE IV ; Start 05/16/17 at 07:13; Stop 05/16/17 at 07:14; Status DC Dexamethasone Sodium Phosphate (Decadron) 20 mg STK-MED ONCE .ROUTE ; Start at 07:13; Stop 05/16/17 at 07:14; Status DC Lidocaine HCl (Lidocaine Pf 2% Vial) 5 ml STK-MED ONCE .ROUTE ; Start 05/16/17 at 07:13; Stop 05/16/17 at 07:14; Status DC Ondansetron HCl (Zofran) 4 mg STK-MED ONCE .ROUTE ; Start 05/16/17 at 07:13; Stop 05/16/17 at 07:14; Status DC Midazolam HCl (Versed) 2 mg STK-MED ONCE .ROUTE ; Start 05/16/17 at 07:14; Stop 05/16/17 at 07:15; Status DC Fentanyl Citrate (Fentanyl 2ml Vial) 100 mcg STK-MED ONCE .ROUTE ; Start at 07:14; Stop 05/16/17 at 07:15; Status DC Fentanyl Citrate (Fentanyl 2ml Vial) 50 mcg PACU PRN PRN IV pain Last administered on 05/16/17 08:10; Start 05/16/17 at 07:45 Sevoflurane (Ultane) 15 ml STK-MED ONCE IH ; Start 05/16/17 at 08:32; Stop at 08:33; Status DC Oxycodone HCl (Roxicodone) 5 mg PRN Q3HRS PRN PO PAIN; Start 05/16/17 at 08:45 Morphine Sulfate 2 mg PRN Q1HR PRN IV PAIN; Start 05/16/17 at 08:45 Fentanyl Citrate (Fentanyl 2ml Vial) 25 mcg PRN Q1HR PRN IV PAIN; Start at 08:45 Senna/Docusate Sodium (Senna Plus) 1 tab DAILY PO Last administered on 08:51; Start 05/16/17 at 09:00 Polyethylene Glycol (miraLAX PACKET) 17 gm PRN DAILY PRN PO CONSTIPATION; Start 05/16/17 at 08:45 Ondansetron HCl (Zofran) 4 mg PRN Q4HRS PRN IV NAUSEA/VOMITING; Start at 08:45 Magnesium Hydroxide (Milk Of Magnesia) 2,400 mg 1X PRN PRN PO CONSTIPATION; Start 05/17/17 at 06:00; Stop 05/18/17 at 05:59 Bisacodyl (Dulcolax Supp) 10 mg 1X PRN PRN RI CONSTIPATION; Start 05/17/17 at 16:00; Stop 05/18/17 at 15:59 Acetaminophen/ Hydrocodone Bitart (Lortab 7.5/325) 1 tab PRN Q4HRS PRN PO PAIN ; Start 05/16/17 at 08:45 Morphine Sulfate 4 mg PRN Q2HR PRN IV PAIN; Start 05/16/17 at 08:45 Acetaminophen/ Hydrocodone Bitart (Lortab 7.5/325) 2 tab PRN Q4HRS PRN PO PAIN Last administered on 05/17/17 07:25; Start 05/16/17 at 08:45 Dextrose (Dextrose 50%-Water Syringe) 12.5 gm PRN Q15MIN PRN IV SEE COMMENTS; Start 05/16/17 at 08:45 Zolpidem Tartrate (Ambien) 5 mg PRN QHS PRN PO INSOMNIA Last administered on 20:36; Start 05/16/17 at 08:45 Fentanyl Citrate (Fentanyl 2ml Vial) 100 mcg STK-MED ONCE .ROUTE ; Start at 09:03; Stop 05/16/17 at 09:04; Status DC Albuterol Sulfate (Ventolin Neb Soln) 2.5 mg PRN Q4HRS PRN NEB SHORTNESS OF BREATH Last administered on 05/17/17 08:22; Start 05/16/17 at 09:15 Enoxaparin Sodium (Lovenox 40mg Syringe) 40 mg Q24H SQ ; Start 05/16/17 at 13: 15; Stop 05/16/17 at 13:15; Status DC Enoxaparin Sodium (Lovenox 40mg Syringe) 40 mg DAILY SQ Last administered on 08:52; Start 05/17/17 at 09:00 Acetaminophen (Tylenol) 650 mg PRN Q6HRS PRN PO fever; Start 05/17/17 at 10:15 Active Scripts Active Ondansetron Odt (Ondansetron) 4 Mg Tab.rapdis 1 Tab PO PRN Q6-8HRS When necessary for nausea vomiting Percocet 5-325 Mg Tablet (Oxycodone/Acetaminophen) 1 Each Tablet 1 Tab PO QID Vitals/I & O Vital Sign - Last 24 Hours 05/16/17 05/16/17 05/16/17 05/16/17 12:40 13:45 15:00 15:51 Temp 98.1 98.1 Pulse 62 60 53 B/P (MAP) 119/77 (91) 112/76 (88) 116/65 (82) Pulse Ox 97 96 95 O2 Delivery Room Air Room Air Room Air Room Air 05/16/17 05/16/17 05/16/17 05/16/17 19:00 19:08 19:51 20:36 Temp 98.1 98.1 Pulse 73 Resp 18 B/P (MAP) 124/74 (91) Pulse Ox 96 97 97 O2 Delivery Room Air Room Air Room Air Room Air O2 Flow Rate 10.0 10.0 05/16/17 05/16/17 05/17/17 10/20/17 21:36 23:00 03:00 07:00 Temp 98.1 98.1 100.0 98.1 98.1 100.0 Pulse 63 64 64 Resp 18 18 20 B/P (MAP) 100/53 (69) 116/64 (81) 143/64 (90) Pulse Ox 97 96 95 98 O2 Delivery Room Air Room Air Room Air O2 Flow Rate 10.0 05/17/17 05/17/17 05/17/17 05/17/17 07:25 08:00 08:23 08:25 Pulse Ox 97 O2 Delivery Room Air Room Air Room Air Room Air 05/17/17 11:00 Temp 97.5 97.5 Pulse 66 Resp 20 B/P (MAP) 133/79 (97) Pulse Ox 98 O2 Delivery Room Air TRACY SARGENT MD May 17, 2017 12:19
[2017-05-17] MEDS: VANCOMYCIN PER PHARMACY MC PRN (13:58)
[2017-05-17 15:00] VITALS: BP 130/71
[2017-05-17] MEDS ORDERED: BISACODYL 10 MG SUPP.RECT. PR PRN (16:00)
--- NOTE | 2017-05-17 16:10 | PDOC ---
PROGRESS NOTES Subjective Subjective Doing well. States pain is better today. Objective Vital Signs Vital Signs Date Time Temp Pulse Resp B/P (MAP) Pulse Ox O2 Delivery O2 Flow Rate FiO2 05/17/17 11:00 97.5 66 20 133/79 (97) 98 Room Air 97.5 05/16/17 21:36 10.0 Physical Exam Lying in bed. Left lateral thigh dressing dry and intact. Calf soft and nontender with negative Irvin's sign. Good dorsiflexion and plantarflexion with no evidence of neurovascular injury. Peripheral pulses and light touch sensation intact. Labs Laboratory Tests Test 05/16/17 04:30 05/17/17 05:18 White Blood Count 8.0 x10^3/uL (4.0-11.0) 14.0 x10^3/uL (4.0-11.0) Red Blood Count 4.35 x10^6/uL (4.30-5.70) 4.09 x10^6/uL (4.30-5.70) Hemoglobin 14.6 g/dL (13.0-17.5) 13.5 g/dL (13.0-17.5) Hematocrit 41.4 % (39.0-53.0) 39.2 % (39.0-53.0) Mean Corpuscular Volume 95 fL (79-100) 96 fL (79-100) Mean Corpuscular Hemoglobin 34 pg (25-35) 33 pg (25-35) Mean Corpuscular Hemoglobin Concent 35 g/dL (31-37) 35 g/dL (31-37) Red Cell Distribution Width 12.6 % (11.5-14.5) 12.5 % (11.5-14.5) Platelet Count 123 x10^3/uL (140-400) 133 x10^3/uL (140-400) Neutrophils (%) (Auto) 67 % (31-73) 80 % (31-73) Lymphocytes (%) (Auto) 21 % (24-48) 11 % (24-48) Monocytes (%) (Auto) 9 % (0-9) 8 % (0-9) Eosinophils (%) (Auto) 3 % (0-3) 0 % (0-3) Basophils (%) (Auto) 0 % (0-3) 0 % (0-3) Neutrophils # (Auto) 5.4 x10^3uL (1.8-7.7) 11.2 x10^3uL (1.8-7.7) Lymphocytes # (Auto) 1.7 x10^3/uL (1.0-4.8) 1.6 x10^3/uL (1.0-4.8) Monocytes # (Auto) 0.7 x10^3/uL (0.0-1.1) 1.2 x10^3/uL (0.0-1.1) Eosinophils # (Auto) 0.3 x10^3/uL (0.0-0.7) 0.0 x10^3/uL (0.0-0.7) Basophils # (Auto) 0.0 x10^3/uL (0.0-0.2) 0.0 x10^3/uL (0.0-0.2) Sodium Level 141 mmol/L (136-145) 140 mmol/L (136-145) Potassium Level 3.8 mmol/L (3.5-5.1) 4.1 mmol/L (3.5-5.1) Chloride Level 106 mmol/L (98-107) 106 mmol/L (98-107) Carbon Dioxide Level 24 mmol/L (21-32) 25 mmol/L (21-32) Anion Gap 11 (6-14) 9 (6-14) Blood Urea Nitrogen 12 mg/dL (8-26) 13 mg/dL (8-26) Creatinine 0.9 mg/dL (0.7-1.3) 0.8 mg/dL (0.7-1.3) Estimated GFR (Cockcroft-Gault) 89.0 101.9 Glucose Level 95 mg/dL (70-99) 105 mg/dL (70-99) Calcium Level 8.6 mg/dL (8.5-10.1) 8.6 mg/dL (8.5-10.1) Vancomycin Level Trough 11.2 mcg/mL (10.0-20.0) Vancomycin Last Dose Date 05/15/17 Vancomycin Last Dose Time 1700 Laboratory Tests Test 05/17/17 05:18 White Blood Count 14.0 x10^3/uL (4.0-11.0) Red Blood Count 4.09 x10^6/uL (4.30-5.70) Hemoglobin 13.5 g/dL (13.0-17.5) Hematocrit 39.2 % (39.0-53.0) Mean Corpuscular Volume 96 fL (79-100) Mean Corpuscular Hemoglobin 33 pg (25-35) Mean Corpuscular Hemoglobin Concent 35 g/dL (31-37) Red Cell Distribution Width 12.5 % (11.5-14.5) Platelet Count 133 x10^3/uL (140-400) Neutrophils (%) (Auto) 80 % (31-73) Lymphocytes (%) (Auto) 11 % (24-48) Monocytes (%) (Auto) 8 % (0-9) Eosinophils (%) (Auto) 0 % (0-3) Basophils (%) (Auto) 0 % (0-3) Neutrophils # (Auto) 11.2 x10^3uL (1.8-7.7) Lymphocytes # (Auto) 1.6 x10^3/uL (1.0-4.8) Monocytes # (Auto) 1.2 x10^3/uL (0.0-1.1) Eosinophils # (Auto) 0.0 x10^3/uL (0.0-0.7) Basophils # (Auto) 0.0 x10^3/uL (0.0-0.2) Sodium Level 140 mmol/L (136-145) Potassium Level 4.1 mmol/L (3.5-5.1) Chloride Level 106 mmol/L (98-107) Carbon Dioxide Level 25 mmol/L (21-32) Anion Gap 9 (6-14) Blood Urea Nitrogen 13 mg/dL (8-26) Creatinine 0.8 mg/dL (0.7-1.3) Estimated GFR (Cockcroft-Gault) 101.9 Glucose Level 105 mg/dL (70-99) Calcium Level 8.6 mg/dL (8.5-10.1) Assessment Assessment POD #1 I&D left lateral thigh abscess Problems: Plan Plan of Care Continue POC. Continue removing 3 inches of iodoform packing daily and cut off. DO NOT repack. Cultures show heavy growth of S. aureus, awaiting sensitivities. Likely will be able to be discharged home tomorrow on antibiotics. WBAT. F/u with [facility] in 10-14 days. MYLES HALL May 17, 2017 4:10 pm
[2017-05-17 19:00] VITALS: BP 118/64
[2017-05-17 23:00] VITALS: BP 118/78
[2017-05-17] MEDS: ZOLPIDEM 5 MG TABLET. PO PRN (23:04)
[2017-05-18 03:00] VITALS: BP 112/66
[2017-05-18] MEDS ORDERED: VANCOMYCIN 1 GM in IV DEXTROSE 5% 250 ML IV SCH ×2 (04:46→05:00)
[2017-05-18 07:00] VITALS: BP 142/84
[2017-05-18] MEDS: ALBUTEROL SULFATE 2.5 MG/3 ML NEBU. NEB PRN (07:03)
[2017-05-18] MEDS: ENOXAPARIN 40 MG/0.4 ML SYRINGE. SQ SCH (08:43)
[2017-05-18] MEDS: SENNOSIDES/DOCUSATE 8.6/50MG TABLET. PO SCH (08:43)
--- NOTE | 2017-05-18 09:33 | PDOC ---
PROGRESS NOTES Subjective Subjective doing well, walking halls, wants to go home Objective Vital Signs Vital Signs Date Time Temp Pulse Resp B/P (MAP) Pulse Ox O2 Delivery O2 Flow Rate FiO2 05/18/17 07:03 97 Room Air 05/18/17 07:00 97.7 54 18 142/84 (103) 97.7 05/16/17 21:36 10.0 Physical Exam walking without difficulty Labs Laboratory Tests Test 05/17/17 05:18 White Blood Count 14.0 x10^3/uL (4.0-11.0) Red Blood Count 4.09 x10^6/uL (4.30-5.70) Hemoglobin 13.5 g/dL (13.0-17.5) Hematocrit 39.2 % (39.0-53.0) Mean Corpuscular Volume 96 fL (79-100) Mean Corpuscular Hemoglobin 33 pg (25-35) Mean Corpuscular Hemoglobin Concent 35 g/dL (31-37) Red Cell Distribution Width 12.5 % (11.5-14.5) Platelet Count 133 x10^3/uL (140-400) Neutrophils (%) (Auto) 80 % (31-73) Lymphocytes (%) (Auto) 11 % (24-48) Monocytes (%) (Auto) 8 % (0-9) Eosinophils (%) (Auto) 0 % (0-3) Basophils (%) (Auto) 0 % (0-3) Neutrophils # (Auto) 11.2 x10^3uL (1.8-7.7) Lymphocytes # (Auto) 1.6 x10^3/uL (1.0-4.8) Monocytes # (Auto) 1.2 x10^3/uL (0.0-1.1) Eosinophils # (Auto) 0.0 x10^3/uL (0.0-0.7) Basophils # (Auto) 0.0 x10^3/uL (0.0-0.2) Sodium Level 140 mmol/L (136-145) Potassium Level 4.1 mmol/L (3.5-5.1) Chloride Level 106 mmol/L (98-107) Carbon Dioxide Level 25 mmol/L (21-32) Anion Gap 9 (6-14) Blood Urea Nitrogen 13 mg/dL (8-26) Creatinine 0.8 mg/dL (0.7-1.3) Estimated GFR (Cockcroft-Gault) 101.9 Glucose Level 105 mg/dL (70-99) Calcium Level 8.6 mg/dL (8.5-10.1) Assessment Assessment staph abscess left hip thigh area Problems: Plan Plan of Care cultures show sensitivities including Levaquin. Home today on PO Levaquin Office F/U in 10-14 days. Daily dressing changes-patient educated yesterday. PARISH BRAVO MD May 18, 2017 09:33
[2017-05-18] MEDS ORDERED: LEVO750T31 PO (09:35)
[2017-05-18] MEDS: VANCOMYCIN PER PHARMACY MC PRN (09:46)
[2017-05-18 11:00] VITALS: BP 122/66
[2017-05-18] MEDS ORDERED: LACTOBACILLUS RHAMNOSUS GG 1 CAPSULE. PO SCH (21:00)
== END 2017-05-18 15:40 | disposition home or self-care (01) | DRG 854 ==
LOC: ER 15:22 → 5 NORTH 16:42
PROVIDERS: ADMIT Internal Medicine; ATTEND Internal Medicine
PROC: 0JBM0ZZ Excision of Left Upper Leg Subcutaneous Tissue and Fascia, Open Approach (ICD-10-PCS; 2017-05-16)
PROC: 0J9M0ZZ Drainage of Left Upper Leg Subcutaneous Tissue and Fascia, Open Approach (ICD-10-PCS; principal; 2017-05-16 07:30)
DX: A41.9 Sepsis, unspecified organism (principal); L02.416 Cutaneous abscess of left lower limb; L03.116 Cellulitis of left lower limb; F17.210 Nicotine dependence, cigarettes, uncomplicated; J45.909 Unspecified asthma, uncomplicated; K21.9 Gastro-esophageal reflux disease without esophagitis; F12.90 Cannabis use, unspecified, uncomplicated; F19.10 Other psychoactive substance abuse, uncomplicated; Z88.0 Allergy status to penicillin; E11.9 Type 2 diabetes mellitus without complications
CPT/HCPCS: 36415; 76882; 80048; 80053; 80202; 85025; 85651; 86140; 87040; 87071; 87075; 87205; 90471; 90715; 90732; 94250; 94640; 94760; 96365; 99406; J1100; J1650; J2250; J2405; J2704; J3010; J3370; J7040; J7050; J7120; J7613; 99285-25; J2001; J7030

== ENCOUNTER 2018-01-06 17:43 | Emergency (ER) | payer OTHER ==
[2018-01-06] MEDS: ONDANSETRON PF 4 MG/2 ML VIAL. IV (18:22)
[2018-01-06] MEDS: IV NORMAL SALINE 1000ML BAG 1,000 ML IV (18:22)
[2018-01-06 18:23] LABS: ADD MAN DIFF? NO
[2018-01-06 18:32] LABS: BASO # 0.1 x10^3/uL (0.0-0.2); BASO % 1 % (0-3); EOS # 0.1 x10^3/uL (0.0-0.7); EOS % 1 % (0-3); HEMATOCRIT 51.2 % (39.0-53.0); HEMOGLOBIN 17.6 g/dL (13.0-17.5); LYMPH # 1.8 x10^3/uL (1.0-4.8); LYMPH % 22 % (24-48); MEAN CORPUSCULAR HEMOGLOBIN 33 pg (25-35); MEAN CORPUSCULAR HGB CONC 35 g/dL (31-37); MEAN CORPUSCULAR VOLUME 96 fL (79-100); MONO # 0.7 x10^3/uL (0.0-1.1); MONO % 8 % (0-9); NEUT # 5.7 x10^3uL (1.8-7.7); NEUT % 68 % (31-73); PLATELET COUNT 156 x10^3/uL (140-400); RED BLOOD COUNT 5.32 x10^6/uL (4.30-5.70); RED CELL DISTRIBUTION WIDTH 13.4 % (11.5-14.5); WHITE BLOOD COUNT 8.4 x10^3/uL (4.0-11.0)
[2018-01-06 18:35] LABS: ANION GAP 17 (6-14); BLOOD UREA NITROGEN 19 mg/dL (8-26); BUN/CREATININE RATIO 14 (6-20); CALCIUM 10.1 mg/dL (8.5-10.1); CARBON DIOXIDE 21 mmol/L (21-32); CHLORIDE 103 mmol/L (98-107); CREATININE 1.4 mg/dL (0.7-1.3); GFR 53.2; GLUCOSE 99 mg/dL (70-99); SODIUM 141 mmol/L (136-145)
[2018-01-06 18:43] LABS: ALBUMIN 4.5 g/dL (3.4-5.0); ALK PHOS 73 U/L (46-116); ALT (SGPT) 76 U/L (16-63); AST (SGOT) 61 U/L (15-37); MAGNESIUM 2.1 mg/dL (1.8-2.4); TOTAL BILIRUBIN 1.1 mg/dL (0.2-1.0); TOTAL PROTEIN 8.8 g/dL (6.4-8.2)
[2018-01-06 18:47] LABS: TROPONINI < 0.017 ng/mL (0.000-0.055)
== END 2018-01-06 19:54 | disposition home or self-care (01) ==
LOC: ER 17:43
DX: E86.0 Dehydration (principal); J45.909 Unspecified asthma, uncomplicated; K21.9 Gastro-esophageal reflux disease without esophagitis; Z88.0 Allergy status to penicillin
CPT/HCPCS: 36415; 80053; 83735; 84484; 85025; 93005; 96361; 96374; 99285; J2405; J7030

== ENCOUNTER 2018-09-10 10:43 | Emergency (ER) | payer OTHER ==
[~2018-09-10] VITALS: Ht 165.1 cm; Wt 59.0 kg
[~2018-09-10 10:43] MED LIST changes: +LEVO750T31 PO; -OXYC-323 PO; +OXYC1TAB15 PO
[2018-09-10 10:50] VITALS: BP 159/74
[2018-09-10] MEDS ORDERED: IBUPROFEN 400 MG TABLET. PO ONE (11:15)
--- NOTE | 2018-09-10 11:44 | PHYS DOC ---
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 Patient states it only hurts with coughing and tender to palpation. Patient states they also hurt with movement to. Patient states he has not taken any pain medications. Patient rates pain 8 out of 10. 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 Denies back pain or joint pain [] Integument: Denies rash or skin lesions [] Neurologic: Denies headache, focal weakness or sensory changes [] All other systems were reviewed and found to be within normal limits, except as documented in this note. (BUDDY BECKWITH APRN) Current Medications Current Medications Current Medications Medications (Trade) Dose Ordered Sig/Tori Start Time Stop Time Status Last Admin Dose Admin Ibuprofen (Motrin) 800 mg 1X ONCE 09/10/18 11:15 09/10/18 11:17 DC 09/10/18 11:22 800 MG (JENNIFER OLIVA MD) Allergies Allergies Allergies Coded Allergies Type Severity Reaction Last Updated Verified Penicillins Allergy Intermediate hives 07/10/14 Yes (JENNIFER OLIVA MD) Physical Exam Physical Exam Constitutional: Well developed, well nourished, no acute distress, non-toxic appearance. [] HENT: Normocephalic, atraumatic, bilateral external ears normal, oropharynx moist, no oral exudates, nose normal. [] Eyes: PERRLA, EOMI, conjunctiva normal, no discharge. [] Neck: Normal range of motion, no tenderness, supple, no stridor. [] Cardiovascular:Heart rate regular rhythm, no murmur [] Lungs & Thorax: Left rib pain with movement or coughing. Bilateral breath sounds clear to auscultation [] Abdomen: Bowel sounds normal, soft, no tenderness, no masses, no pulsatile masses. [] Skin: Warm, dry, no erythema, no rash. [] Back: No tenderness, no CVA tenderness. [] Extremities: No tenderness, no cyanosis, no clubbing, ROM intact, no edema. [] Neurologic: Alert and oriented X 3, normal motor function, normal sensory function, no focal deficits noted. [] Psychologic: Affect normal, judgement normal, mood normal. [] (BUDDY BECKWITH APRN) Current Patient Data Vital Signs Vital Signs Date Time Temp Pulse Resp B/P (MAP) Pulse Ox O2 Delivery O2 Flow Rate FiO2 09/10/18 10:50 98.1 79 18 159/74 (102) 97 Room Air 98.1 (JENNIFER OLIVA MD) EKG EKG [] (BUDDY BECKWITH APRN) Radiology/Procedures Radiology/Procedures Left ribs (BUDDY BECKWITH APRN) Impressions: [facility] [address] [place], [place] [id number] IMAGING REPORT Signed PATIENT: YANIRA MCDONALD ACCOUNT: [id number] : 1965 LOCATION: ER AGE: 53 SEX: M EXAM STATUS: REG ER ORD. PHYSICIAN: BUDDY BECKWITH APRN REASON: fall, left rib pain PROCEDURE: RIBS LEFT AND PA CHEST Examination: RIBS LEFT AND PA CHEST History: PT FELL ON ICE YESTERDAY. PAIN TO LEFT LATERAL RIBS Comparison/Correlation: None Findings: Frontal view of the chest and 4 views of the left ribs were obtained. Total of 5 images provided. Heart size and pulmonary vasculature are normal. No pneumothorax. Calcified granulomata involve the left lung base. No infiltrate or pleural effusion. Left ribs are intact with no displaced fracture or bony destructive finding. Impression: No active disease. No left rib fracture. Electronically signed by: Ananth Mcqueen MD (09/10/2018 11:41 AM) [id number] DICTATED and SIGNED BY: ANANTH MCQUEEN MD DATE: 09/10/18 1139 (BUDDY BECKWITH APRN) Course & Med Decision Making Course & Med Decision Making Patient is a 53 year old male who presents with fell on the ice on Saturday hurting his left ribs. Patient states it only hurts with coughing and tender to palpation. Patient states they also hurt with movement to. Patient states he has not taken any pain medications. Patient rates pain 8 out of 10. Alert and oriented. Walks with a steady gait. There is no bruising, deformity or crepitus to the ribs. Lungs are clear to auscultation all lobes. Patient is a smoker. Patient states his right hip and upper leg is also hurting him but that there is no bruising, deformity or swelling and the patient is walking and can bare weight on the leg. I have ordered the patient a incentive spirometer. Patient has received medication for pain in the ED. Xray show No active disease. No left rib fracture. Patient is given incentive spirometer and educated on how to use it. Patient is given prescription for medications and he should follow-up with his primary care provider if needed. (BUDDY BECKWITH APRN) Course & Med Decision Making Staff Physician Addendum: I was working in the ER during the course of this patient's visit. I was available for consultation as needed, but I was not directly involved in the care of this patient. (JENNIFER OLIVA MD) Dragon Disclaimer Dragon Disclaimer This electronic medical record was generated, in whole or in part, using a voice recognition dictation system. (BUDDY BECKWITH APRN) Departure Departure Impression: Primary Impression: Rib contusion Disposition: 01 HOME, SELF-CARE Condition: STABLE Referrals: LARRY FORBES MD (PCP) Patient Instructions: Rib Contusion Additional Instructions: Take medication s as prescribe. Use Incentive Spirometer twice a hour at least. Follow up with primary care provider. Scripts Ibuprofen (IBUPROFEN) 600 Mg Tablet 600 MG PO PRN Q6HRS PRN for INFLAMMATION, #15 TAB Prov: BUDDY BECKWITH APRN 09/10/18 Hydrocodone/Apap 5-325 (NORCO 5-325 TABLET) 1 Each Tablet 1 TAB PO PRN Q6HRS PRN for PAIN, #8 TAB 0 Refills Prov: BUDDY BECKWITH APRN 09/10/18 Problem Qualifiers Primary Impression: Rib contusion Encounter type: initial encounter Laterality: left Qualified Codes: S20.212A - Contusion of left front wall of thorax, initial encounter BUDDY BECKWITH APRN Sep 10, 2018 11:44 JENNIFER OLIVA MD Sep 11, 2018 09:15
[2018-09-10] MEDS ORDERED: HYDR-3164 PO (11:49)
[2018-09-10] MEDS ORDERED: IBUP-1007 PO (11:49)
== END 2018-09-10 12:05 | disposition home or self-care (01) ==
LOC: ER 10:43
DX: S20.212A Contusion of left front wall of thorax, initial encounter (principal); K21.9 Gastro-esophageal reflux disease without esophagitis; J45.909 Unspecified asthma, uncomplicated; I25.2 Old myocardial infarction; Z88.0 Allergy status to penicillin; W00.0XXA Fall on same level due to ice and snow, initial encounter; Y93.89 Activity, other specified; Y92.89 Other specified places as the place of occurrence of the external cause; Y99.8 Other external cause status
CPT/HCPCS: 71101; 99283